=== PATIENT | female | born 1955 | race Caucasian/White ===

== ENCOUNTER → 2018-01-18 10:16 | Outpatient (CLI) | payer SELFPAY ==
--- NOTE | 2018-01-18 10:28 | RAD_ITS ---
STUDY: X-RAY - LEFT SHOULDER REASON FOR EXAM: Female, 62 years old. No recent injury. Pain in the left shoulder. TECHNIQUE: 4 view(s) of the shoulder. COMPARISON: None. FINDINGS: Mild osteopenia. Thoracic structures within the field of view exhibit no acute process. Mild chronic AC joint arthrosis with mild capsular prominence. No apparent separation. Normal glenohumeral articulation. Normal periarticular soft tissues. No shoulder fracture. RAD/Shoulder min 2 Views IMPRESSION: Mild chronic AC joint arthrosis. Electronically Signed: Moe Wagner, at 11:34 EDT Tel , Service support ,
== END ==
DX: M25.512 Pain in left shoulder (principal); M67.912 Unspecified disorder of synovium and tendon, left shoulder
CPT/HCPCS: 73030

== ENCOUNTER → 2018-01-26 14:24 | Outpatient (CLI) | payer SELFPAY | PROVIDERS: Visit Provider Urology | DX: N39.0 Urinary tract infection, site not specified (principal) | CPT/HCPCS: 87077; 87086; 87088; 87186 ==

== ENCOUNTER → 2018-01-28 11:54 | Outpatient (CLI) | payer SELFPAY ==
--- NOTE | 2018-01-28 11:59 | US_ITS ---
STUDY: RENAL ULTRASOUND - COMPLETE REASON FOR EXAM: Female, 62 years old. Frequent UTIs and urinary frequency TECHNIQUE: Ultrasound evaluation of the kidneys was performed with real-time and static bustos-scale imaging. COMPARISON: None. FINDINGS: RIGHT KIDNEY: Normal location of the right kidney, which is normal in size. The right kidney measures 11.1 x 3.9 x 5.6 cm. There is a normal cortex of the right kidney. The renal cortex measures 1.3 cm. There is no right renal mass or cyst. Several right renal calculi are seen measuring up to 8 mm. There is no right hydronephrosis. DISTAL RIGHT URETER: There is non-visualization of the distal right ureter. There is no demonstrated right ureterovesical junction calculus. There is a visualized right ureteral jet. LEFT KIDNEY: Normal location of the left kidney, which is normal in size. The left kidney measures 10.4 x 4.0 x 6.0 cm. There is a normal cortex of the left kidney. The renal cortex measures 1.4 cm. There is a 2.1 x 1.3 x 1.4 cm left renal cyst. There are several left renal calculi measuring up to 9 mm. There is no left hydronephrosis. DISTAL LEFT URETER: There is non-visualization of the distal left ureter. There is no demonstrated left ureterovesical junction calculus. There is a visualized left ureteral jet. BLADDER: The distended urinary bladder has a volume of 98 ml. The empty urinary bladder has a volume of 91 ml. There is a normal wall thickness of the distended urinary bladder. There is no demonstrated mass within the urinary bladder. There are no demonstrated bladder calculi. US/Kidney and Bladder IMPRESSION: Bilateral renal calculi and left renal cyst as detailed above. 91 cc of residual urine seen in the bladder on the postvoiding images. Electronically Signed: Rick Simon MD at 21:46 EDT , Service support ,
== END ==
PROVIDERS: Visit Provider Urology
DX: N39.0 Urinary tract infection, site not specified (principal)
CPT/HCPCS: 76770

== ENCOUNTER → 2018-02-05 07:12 | Outpatient (CLI) | payer SELFPAY ==
--- NOTE | 2018-02-05 07:00 | CT_ITS ---
STUDY: CT ABDOMEN AND PELVIS WITHOUT CONTRAST REASON FOR EXAM: Female, 62 years old. Bilateral kidney stones. Frequent urination. RADIATION DOSAGE (If Supplied By Facility): CTDIvol = ( 8.76 ) mGy, DLP = ( 407.06 ) mGycm TECHNIQUE: Transaxial images were obtained from the dome of the diaphragm to the symphysis pubis without oral contrast, and without intravenous contrast. Sagittal and coronal images were reconstructed. Individualized dose optimization techniques were used for this CT. COMPARISON: Ultrasound kidneys: 01/28/2018 FINDINGS: The visualized lung bases demonstrate no consolidation or pleural effusion. There is possible COPD. The visualized portions of the heart are within normal limits. Normal unenhanced liver. There are multiple gallstones. Normal unenhanced spleen and pancreas. Normal bilateral adrenal glands. Multiple inconspicuous punctate calculi are likely present in the right kidney. There is no right hydronephrosis. There are a few calculi in the left kidney, largest is 4 mm. There are 2.2 cm and 1.5 cm left renal parapelvic cysts. No demonstrated ureteral calculi. Normal visualized stomach. Normal small intestine. Moderately large amount of retained fecal debris is seen in the entire colon. There is non-visualization of the appendix. There is diffuse atherosclerotic calcification of the abdominal aorta and right common iliac artery, without a demonstrated aneurysm. Normal inferior vena cava. Normal retroperitoneum. There is borderline circumferential wall thickening of the urinary bladder demonstrated with possible pericystic edema and with intraluminal significant amount of air in the bladder, findings are suggestive of acute cystitis in the appropriate clinical context. There is atrophy of the uterus. There is a small /moderate size umbilical hernia containing fat. Unremarkable osseous structures. CT/Abdomen/Pelvis without Cont IMPRESSION: 1. Bilateral nephrolithiasis. Left renal parapelvic cysts. 2. Borderline circumferential wall thickening of the urinary bladder. Intraluminal air present in the bladder. There is possible pericystic edema present, findings are suspicious of acute cystitis in the appropriate clinical context. 3. Cholelithiasis. 4. Moderately increased colonic fecal debris. Electronically Signed: Tariq Sharma MD at 9:30 EDT Tel , Service support ,
== END ==
PROVIDERS: Referring Provider Urology; Visit Provider Urology
DX: N20.0 Calculus of kidney (principal)
CPT/HCPCS: 74176

== ENCOUNTER → 2018-02-21 12:34 | Outpatient (CLI) | payer SELFPAY | PROVIDERS: Visit Provider Urology | DX: N39.0 Urinary tract infection, site not specified (principal); R39.15 Urgency of urination | CPT/HCPCS: 87077; 87086; 87088; 87186 ==

== ENCOUNTER 2018-05-04 10:30 | Outpatient (RCR) | payer SELFPAY ==
--- NOTE | 2018-02-15 08:59 | HP.PTEVAL_ITS ---
Patient's Visit Information BARBARA LOPEZ is a 62 year old F referred to Physical Therapy by AWAIS DECKER with a diagnosis of Pain in L shoulder, RC impingement, upper back pain.. Date of Evaluation: 02/15/18 Physical Therapist: Dina Callahan - Visit Plan Frequency: 2x /Week Duration: 4 Weeks Plan: 2X/ week for 4 weeks for L shoulder AAROM, PROM, AROM, scapular and RC strength, postural exercises with HEP. Modalities if needed. - Subjective Subjective: Her L shoulder hurts really bad. thinks it could be RC...she did not do anything to it that she knows of. She can not lay on it. Hard for her to reach for things. It is hard because it is painful. Pt is R handed. She reports that she can not lay on that side. This started about 3 months ago. It is getting worse. No N&T. No neck pain currently but for a year before this she had neck pain then this started in. She feels that her L hand is weak. Her elbow down it does not hurt. Pt is not complaining of upper back pain. Pt gets massages 1X/ month - Pain L shoulder pain Pain Intensity (Out of 10): 1 Pain Intensity Range: 8 Comment: with movement - Objective R handed: Recruitment Director strength: 44 R and 41 L. Shoulder AROM: R shoulder flexion 160 degrees, L shoulder abd 156 degrees, IR T8, 51 degrees. L shoulder AROM: flexion: 104 degrees, abd 80 degrees, IR L5, 8 degrees. L shld MMT: flexion 3-/5, abd 3-/5 ( and painful), ER 3+/5, IR 3+/5. R shld MMT: flexion, abd, ER , and IR 4/5. + HK test for pain, + empty can for pain and weakness - Goals Goal 1:: I HEP Goal Time Frame: 4-6 Weeks Goal 2:: Increase L shoulder AROM to equal the R shoulder (at time of eval: Shoulder AROM: R shoulder flexion 160 degrees, L shoulder abd 156 degrees, IR T8 , 51 degrees. L shoulder AROM: flexion: 104 degrees, abd 80 degrees, IR L5, 8 degrees) Goal Time Frame: 4-6 Weeks Goal 3:: Decrease L shoulder pain to 1/10 with reaching and lifting a gallon of milk Goal Time Frame: 4-6 Weeks - Rehabilitation Potential Rehabilitation Potential: Good - Anticipated Interventions Patient/Client Instruction: Educate patient on: Condition, Plan of Care For the Purpose of:: To decrease pain, To decrease swelling/inflammation, To increase ROM, To improve nutrient delivery to tissue, To improve muscle performance and motor function, To improve ability to perform ADL's, To increase tolerance to activity/condition/position, To improve performance and independence with ADL's, To improve ability of physical actions for home/ community/work/leisure, To improve health of tissue, To decrease soft tissue restriction, To increase flexibility/ROM Therapeutic Exercise to Include: Strength training, Postural training, Flexibilty training, Passive ROM, Active ROM, Scapular Strength/Stabilization For the Purpose of:: To decrease pain, To decrease swelling/inflammation, To increase ROM, To improve nutrient delivery to tissue, To increase oxygenation perfusion, To improve muscle performance and motor function, To improve ability to perform ADL's, To increase tolerance to activity/condition/position, To improve ability of physical actions for home/community/work/leisure, To improve health of tissue, To decrease soft tissue restriction, To increase flexibility/ ROM Manual Therapy Techniques to Include: Passive ROM For the Purpose of:: To increase ROM IF ES: Yes Cryotherapy (ice pack, ice massage): Yes Thermo therapy (hot pack): Yes Ultrasound (thermal/non thermal): Yes For the Purpose of:: To decrease pain, To decrease swelling/inflammation, To increase ROM, To improve nutrient delivery to tissue, To improve muscle performance and motor function Thank you for the opportunity to evaluate your patient. For Medicare and Medicare HMO plans, please review the plan of care and approve it. It will need to be FAXED BACK to us at [phone] for Medicare purposes. Please let me know if there are questions or concerns regarding this plan of care. Physician Signature: Date:
--- NOTE | 2018-07-12 09:07 | HP.PTDCNRP_ITS ---
HP - Discharge Summary (1) - Patient Information BARBARA LOPEZ was seen in my office for initial evaluation on 02/15/18. The following Plan of Care was established for this patient: Initial Frequency: 2x /Week Initial Duration: 4 Weeks - Anticipated Interventions Patient/Client Instruction: Educate patient on: Condition, Plan of Care For the Purpose of:: To decrease pain, To decrease swelling/inflammation, To inc rease ROM, To improve nutrient delivery to tissue, To improve muscle performance and motor function, To improve ability to perform ADL's, To increase tolerance to activity/condition/position, To improve performance and independence with ADL's, To improve ability of physical actions for home/community/work/leisure, To improve health of tissue, To decrease soft tissue restriction, To increase flexibility/ROM Therapeutic Exercise to Include: Strength training, Postural training, Flexibilty training, Passive ROM, Active ROM, Scapular Strength/Stabilization For the Purpose of:: To decrease pain, To decrease swelling/inflammation, To increase ROM, To improve nutrient delivery to tissue, To increase oxygenation perfusion, To improve muscle performance and motor function, To improve ability to perform ADL's, To increase tolerance to activity/condition/position, To improve ability of physical actions for home/community/work/leisure, To improve health of tissue, To decrease soft tissue restriction, To increase flexibility/ROM Manual Therapy Techniques to Include: Passive ROM For the Purpose of:: To increase ROM IF ES: Yes Cryotherapy (ice pack, ice massage): Yes Thermo therapy (hot pack): Yes Ultrasound (thermal/non thermal): Yes For the Purpose of:: To decrease pain, To decrease swelling/inflammation, To increase ROM, To improve nutrient delivery to tissue, To improve muscle performance and motor function This patient was last seen in our office 05/04/18. Pertinent comments regarding their Physical therapy will appear below: [facility] PT. Pt wanted to do exercises at home. At this point I will be discontinuing this patient from physical therapy. I would be happy to see this patient again in the future if found appropriate by the physician. Thank you! Dina Callahan, MPT
== END 2018-05-04 19:00 | disposition home or self-care (01) ==
LOC: PT 10:30
DX: M25.512 Pain in left shoulder (principal); M75.42 Impingement syndrome of left shoulder; M54.9 Dorsalgia, unspecified
CPT/HCPCS: 97014; 97035; 97110; 97161; G0283

== ENCOUNTER → 2018-05-13 07:38 | Outpatient (CLI) | payer SELFPAY ==
--- NOTE | 2018-05-13 07:43 | BI_ITS ---
MAMMOGRAPHY - BILATERAL SCREENING REASON FOR EXAM: Female, 62 years old. Routine annual screening examination. PERTINENT HISTORY: Mother with breast cancer. TECHNIQUE: Digital bilateral breast babs (3D mammographic acquisition) in the CC and MLO projections. 2-D mediolateral oblique (MLO) and craniocaudad (CC) views of both breasts were obtained. CAD: Full Field Digital Mammography with Computer Added Detection was performed. COMPARISON: Comparison is made with prior study dated March 26, 2017 and October 31, 2013. FINDINGS: Breast Composition: The breasts are heterogeneously dense, which may obscure small masses. There are no dominant masses or suspicious calcifications. Stable small bilateral axillary lymph nodes. No other significant abnormalities are identified. There has been no significant change since the prior study. BI/SCREENING MAMM (CAD), BILAT IMPRESSION: Stable bilateral screening mammogram. Yearly follow-up mammogram recommended. (A) ASSESSMENT CATEGORY: BIRADS Category 1: Negative. A letter regarding these results will be sent to the patient by the facility within 30 days. Approximately 10% of breast cancers are not detected by mammography. A normal mammogram should not delay biopsy of a clinically suspicious abnormality. [id number] Electronically Signed: Hunter Benavides MD at 8:58 EST Tel [phone], Service support ,
== END ==
PROVIDERS: Referring Provider Obstetrics & Gynecology; Visit Provider Obstetrics & Gynecology
DX: Z12.31 Encounter for screening mammogram for malignant neoplasm of breast (principal)
CPT/HCPCS: 77063; 77067

== ENCOUNTER → 2018-06-23 10:53 | Outpatient (CLI) | payer SELFPAY | PROVIDERS: Referring Provider Urology; Visit Provider Urology | DX: R30.0 Dysuria (principal) | CPT/HCPCS: 87086; 87088; 87186 ==

== ENCOUNTER 2018-07-22 18:47 | Observation (INO) | payer SELFPAY ==
[2018-07-22] VITALS (8 sets, daily range): BP systolic 127–172; BP diastolic 67–83; PULSE 47–69; RESP 15–20; TEMP 36.4–36.7; O2SAT 96–100; BMI 24.5; BMI 24.0
--- NOTE | 2018-07-22 19:12 | EKG12_ITS ---
Test Reason : CP Blood Pressure : / mmHG Vent. Rate : 055 BPM Atrial Rate : 055 BPM P-R Int : 122 ms QRS Dur : 084 ms QT Int : 414 ms P-R-T Axes : 077 069 068 degrees QTc Int : 396 ms Sinus bradycardia Possible Left atrial enlargement Borderline ECG Confirmed by MADI MORENO, SAMUEL ([id number]), staff editor SUDHIR ELAM ([id number]) on 07/26/2018 3:29:30 PM Referred By: Roman Luis Confirmed By:SAMUEL BARRAZA MD
[2018-07-22] MEDS: Aspirin 81 MG TAB.CHEW 324 MG PO (19:20)
[2018-07-22 19:23] LABS: Absolute Lymphocyte Count 1.73 X10^3/ul (0.83-4.51); Absolute Neutrophil Count 5.1 X10^3/uL (2.0-7.7); Basophil# 0.02 X10^3/uL; Basophil% 0.3 % (0-1); Eosinophil# 0.09 X10^3/uL; Eosinophils% 1.2 % (0-5); Hemoglobin 13.8 g/dl (12.0-15.0); Lymphocyte # 1.73 X10^3/ul (4.0); Lymphocyte % 22.7 % (19-41); Mean Corp Hgb Conc 32.1 g/gl (32-36); Mean Corpuscular Hgb 27.8 pg (27.0-32.0); Mean Corpuscular Volume 86.5 fL (81-99); Mean Platelet Vol. 10.8 fl (6.2-12.0); Monocyte# 0.62 X10^3/uL; Monocyte% 8.1 % (0-10); Neutrophil # 5.12 X10^3/uL (2.7-7.7); Neutrophil % 67.3 % (47-70); Platelet Count 224 K/mm3 (150-450); RBC Distribution Width CV 12.9 % (11.6-14.6); RBC Distribution Width SD 40.6 fl (35.1-43.9); Red Blood Count 4.97 M/mm3 (4.2-5.4); White Blood Count 7.6 K/mm3 (4.4-11.0)
[2018-07-22 19:28] LABS: POSITIVE COUNT NO; POSITIVE DIFFERENTIAL NO; POSITIVE MORPHOLOGY NO
--- NOTE | 2018-07-22 19:30 | RAD_ITS ---
STUDY: X-RAY CHEST REASON FOR EXAM: Female, 63 years old. Chest pain TECHNIQUE: PA and lateral views of the chest. COMPARISON: None. FINDINGS: Cardiac monitoring leads are present. There is hyperinflation of the lungs consistent with chronic obstructive lung disease (COPD). There is no demonstrated pleural abnormality. Normal size heart. Normal mediastinum and jenny. Normal visualized pulmonary arteries. There is atherosclerotic calcification of the aortic arch with tortuosity. There is demineralization of the osseous structures. There is increased thoracic kyphosis and mild multilevel thoracic spondylosis. Normal visualized ribs, clavicles, and shoulders. There is no demonstrated abnormality of the visualized soft tissue structures of the upper abdomen. RAD/Chest PA and Lateral IMPRESSION: COPD without radiographic evidence of acute cardiopulmonary disease. Electronically Signed: Mikayla Kerns MD at 20:30 EST , Service support ,
[2018-07-22 19:38] LABS: D-Dimer Quantitative (DVT/PE) 0.36 FEU/ug/m (0.27-0.49)
[2018-07-22 19:45] LABS: Anion Gap 6 (5-15); BUN 17 mg/dL (7-18); BUN/Creat Ratio 25.2 RATIO (10-20); Calcium,Total 8.5 mg/dL (8.5-10.1); Chloride 107 mmol/L (98-107); Creatinine, Serum 0.67 mg/dL (0.55-1.02); EST Glomerular Filtration Rate 94 mL/min (>60); Est Glom Filt Rate - Afr Amer 114 mL/min (>60); Estimated Creatinine Clearance 75.18 ml/min; Glucose 112 mg/dL (74-106); Lipase 206 U/L (73-393); Potassium 3.7 mmol/L (3.5-5.1); Sodium Level 141 mmol/L (136-145)
[2018-07-22 19:54] LABS: AST(SGOT) 8 U/L (15-37); Alanine Aminotransfer ALT/SGPT 18 U/L (13-56); Albumin, Serum 3.8 g/dL (3.2-5.0); Alkaline Phosphatase 79 U/L (45-117); Bilirubin, Direct 0.14 mg/dL (0.00-0.30); Globulin 3.2 g/dL (2.2-4.2)
--- NOTE | 2018-07-22 20:02 | ED.RN ---
MD AWARE OF HEART RATE DOWN TO 46.
--- NOTE | 2018-07-22 20:28 | ED.DCSUM_ITS ---
- ER Visit Summary Date of Service: 07/22/18 Chief Complaint: Chest pain History of Present Illness: The patient is a 63 F presenting for evaluation secondary chest pain. Patient has an underlying history of hyperlipidemia and a premature family history of cardiac disease. Patient is non-smoker. Patient reports that in the last 2 days she has been dealing with chest pain. She had an episode yesterday that lasted for couple hours and spontaneously resolved. Patient states that today at about 4 PM she had an onset of chest pain that is a heaviness and dullness in her chest. She states was associated with some lightheadedness on walking. No worsening of the pain on walking and no shortness of breath associated with this. Patient denies any prior similar episodes in the past. Patient did undergo shoulder manipulation under anesthesia about a week ago and denies any asymmetric swelling of her legs. Review of systems otherwise negative. Physical Examination: Vital signs are within normal limits, patient is afebrile. General: Patient is well-nourished well-developed and in no acute distress. Head: Normocephalic, atraumatic Eyes: Pupils equal round and reactive bilaterally, extra occular motion intact bialterally ENT: Moist mucous membranes Neck: Supple, no lymphadenopathy, no JVD, no meningismus CVS: Heart regular rate and rhythm, no murmurs, rubs or gallops, radial pulses 2+ bilaterally Resp: Respirations nondistressed, lung sounds clear bilaterally Abdomen: Soft, nontender, nondistended, no palpable masses, normal bowel sounds Back: Nontender Extremities: Nontender, atraumatic, active full range of motion, no peripheral edema Skin: warm, no rashes, no petechia Neuro: Alert and oriented x 4, CN 2-12 intact, no lateralizing neurological defecits Psyc: Normal affect Test Results: EKG demonstrates sinus bradycardia with a rate of 55 normal intervals no evidence of acute ischemia or arrhythmia. CBC chemistry and troponin are negative, chest x-ray is negative. Emergency Department Course and Treatment: Patient presented for evaluation secondary to chest pain. Workup was negative as noted above, patient's heart score is 3. However, while in the emergency department the patient had a couple of episodes where her heart rate would bradycardia down into the 40s and she would have some dramatic lightheadedness, but a normal blood pressure. Given the patient's strong family history, the episodes of bradycardia with symptomatology, I do believe that she requires admission. I will discussed this with hospitalist. Disposition: Admission Impression: 1. Chest pain 2. Intermittent symptomatic bradycardia This note was generated with [employer] dictation software. It may contain incorrect words, spelling, and punctuation that were not noted in review of the chart prior to signing ED Disposition - Plan for ED Patient: Chief Complaint: Chest Pain Referrals: [facility] Doctor,Out of [Primary Care Provider] -
--- NOTE | 2018-07-22 21:14 | PCM.HP.STD ---
Problem List (1) Chronic UTI Status: Chronic (2) Chronic urinary incontinence Status: Chronic (3) Atypical chest pain Status: Acute History of Present Illness Date of Admission: 07/22/18 Chief Complaint: Chest pain 2 times since yesterday. The patient is a 63 year old F with history of chronic UTI on chronic Keflex prophylaxis came to ED with chest pain since 1 day prior to admission. Patient describes the chest pain near the xiphisternum/epigastrium, felt like heartburn lasted for several hours yesterday while she was sitting, localized without radiation. This was not associated with shortness of breath, palpitation but she felt dizzy and lightheaded. This happened again today, similar nature, persistent and she came to ER. Currently, she is chest pain-free. In ED, EKG shows sinus bradycardia at [address]-T changes. No previous EKG to compare with. She has an e xtensive history of coronary artery disease in the family, her father had first ME at the age of 59 and then 18 stents. Her nephew had early ME at 28 years of age and he . She denies history of coronary artery disease, hypertension but has dyslipidemia, not on medication. [] Past Medical History Past Medical History (Chronic Problems): Chronic Problems Chronic UTI (Chronic) Chronic urinary incontinence (Chronic) Allergies Sulfa (Sulfonamide Antibiotics) Allergy (Verified 07/22/18 18:52) Hives Home Medications: Ambulatory Orders Medication Instructions Recorded Cephalexin 250 mg PO DAILY 07/22/18 Cholecalciferol (VIT D3) [Vitamin 1,000 unit PO DAILY 07/22/18 D] Hydrocodone/Acetaminophen 1 - 2 tab PO Q4H PRN PRN 07/22/18 [Hydrocodone-Acetamin 5-325 mg] Oxybutynin Chloride [Ditropan Xl] 10 mg PO DAILY 07/22/18 Smoking Status: Never smoker - *Family History Paternal History Items: Heart Disease Review of Systems Constitutional: Denies: Chills, Fever, Weight Change HEENT: Denies: Head Aches, Sinus Congestion, Sinus Drainage Cardiovascular: Reports: Chest Pain, Light Headedness. Denies: Palpitations Respiratory: Denies: Cough, Shortness of breath at rest, Sputum production Gastrointestinal: Denies: Abdominal Pain, Nausea, Vomiting Genitourinary: Reports: Incontinence. Denies: Dysuria Musculoskeletal: Denies: Joint Pain, Joint Tenderness Skin: Denies: Rash, Wounds Neurological: Denies: Numbness, Tingling, Focal weakness Psychiatric: Denies: Anxiety, Depression, Homicidal Ideations, Suicidal Ideations Hematologic/ Lymphatic: Denies: Easy Bruising, Easy Bleeding VTE Information - Inpt Only VTE Present on Admission: No VTE Mechan Device Prophylaxis: None VTE Pharm Prophylaxis ordered?: Yes Patient Problems: Active and Suspected Problems Atypical chest pain (Acute) - Physical Exam General: Alert, Oriented x3, Cooperative HEENT: Atraumatic, PERRLA, EOMI, Normocephalic Neck: Supple, No JVD, Negative Carotid Bruits Lungs: Clear to auscultation, Normal air movement Cardiovascular: Regular rate, Regular Rhythm, Normal S1, Normal S2, No murmurs Abdomen: Bowel Sounds Present, Soft, Non Tender, Non-Distended Extremities: No edema, Capillary Refill Less than 3 Seconds Skin: No rashes, No breakdown Musculoskeletal: No Tenderness to Palpation of Joints or Extremities, Arthritic Changes Neurological: Cranial nerves II-XII grossly intact, Deep Tendon Reflexes 2+/4 and Symmetrical, Neuro grossly intact, Motor Exam 5/5 strength throughout Psych/Mental Status: Normal Affect, Appropriate Vital Signs Temp Pulse Resp BP Pulse Ox 97.5 F L 47 L 15 148/71 H 100 07/22/18 18:48 07/22/18 20:01 07/22/18 20:01 07/22/18 20:01 07/22/18 20:01 Oxygen Delivery Method Room Air Weight: 142 lb 13.753 oz Body Mass Index (BMI) 24.5 Laboratory Tests Past 24 Hrs 07/22/18 07/22/18 07/22/18 19:05 19:05 19:05 WBC 7.6 RBC 4.97 Hgb 13.8 Hct 43.0 MCV 86.5 MCH 27.8 MCHC 32.1 RDW 12.9 RDW Differential 40.6 Plt Count 224 MPV 10.8 Immature Gran % (Auto) 0.400 Neut % (Auto) 67.3 Lymph % (Auto) 22.7 [place] % (Auto) 8.1 Eos % (Auto) 1.2 Baso % (Auto) 0.3 Absolute Neuts (auto) 5.1 Absolute Lymphs (auto) 1.73 Total Counted Not Reportable D-Dimer Quant (PE/DVT) 0.36 Sodium Potassium Chloride Carbon Dioxide Anion Gap BUN Creatinine Estim Creat Clear Calc Est GFR (MDRD) Af Amer Est GFR (MDRD) Non-Af BUN/Creatinine Ratio Glucose Calcium Total Bilirubin 0.80 Direct Bilirubin 0.14 AST 8 L ALT 18 Alkaline Phosphatase 79 Troponin I Total Protein 7.0 Albumin 3.8 Globulin 3.2 Lipase 07/22/18 19:05 WBC RBC Hgb Hct MCV MCH MCHC RDW RDW Differential Plt Count MPV Immature Gran % (Auto) Neut % (Auto) Lymph % (Auto) [place] % (Auto) Eos % (Auto) Baso % (Auto) Absolute Neuts (auto) Absolute Lymphs (auto) Total Counted D-Dimer Quant (PE/DVT) Sodium 141 Potassium 3.7 Chloride 107 Carbon Dioxide 28.0 Anion Gap 6 BUN 17 Creatinine 0.67 Estim Creat Clear Calc 75.18 Est GFR (MDRD) Af Amer 114 Est GFR (MDRD) Non-Af 94 BUN/Creatinine Ratio 25.2 H Glucose 112 H Calcium 8.5 Total Bilirubin Direct Bilirubin AST ALT Alkaline Phosphatase Troponin I < 0.015 Total Protein Albumin Globulin Lipase 206 Assessment/Plan All Active Problems Atypical chest pain (Acute) The patient is a 63 year old F with history of chronic UTI on chronic Keflex prophylaxis came to ED with chest pain since 1 day prior to admission. Patient describes the chest pain near the xiphisternum/epigastrium, felt like heartburn lasted for several hours yesterday while she was sitting, localized without radiation. This was not associated with shortness of breath, palpitation but she felt dizzy and lightheaded. This happened again today, similar nature, persistent and she came to ER. Currently, she is chest pain-free. In ED, EKG shows sinus bradycardia at [address]-T changes. No previous EKG to compare with. First troponin is negative. She has an extensive history of coronary artery disease in the family, her father had first ME at the age of 59 and then 18 stents. Her nephew had early ME at 28 years of age and he . She denies history of coronary artery disease, hypertension but has dyslipidemia, not on medication. 1. Atypical chest pain, seems GERD but concern of acute coronary syndrome: Patient is being admitted in PCU. ACS protocol with serial troponin enzymes and treadmill nuclear stress for tomorrow morning. She has sinus bradycardia, etiology unclear, not on beta-lynne. EKG does not seem inferior wall ME. No hypotension. Repeat EKG in the floor. IV Protonix 40 mg daily 2. Dyslipidemia: Not on medication. Fasting lipid profile tomorrow. 3. Elevated blood pressure: Patient states her blood pressure in PCP office is in higher 90s. Here 149/67, 172/83. Monitor blood pressure. If elevated can start TANJA inhibitor/ARB. 4. Chronic urinary incontinence with chronic UTI on Keflex: Continue home medications DVT prophylaxis: On Lovenox 40 g subcu daily This note was generated with [employer] dictation software. Every effort was made to ensure accuracy, however computerized sheet sorter mistakes may persist. [] Clinical Impression(s) from Imaging Studies Chest X-Ray 07/22/18 19:30 IMPRESSION: COPD without radiographic evidence of acute cardiopulmonary disease.
--- NOTE | 2018-07-22 21:39 | EKG12_ITS ---
Test Reason : ADMIT Blood Pressure : / mmHG Vent. Rate : 055 BPM Atrial Rate : 055 BPM P-R Int : 118 ms QRS Dur : 090 ms QT Int : 432 ms P-R-T Axes : 064 047 065 degrees QTc Int : 413 ms Sinus bradycardia Nonspecific ST abnormality Abnormal ECG Confirmed by MADI MORENO, SAMUEL ([id number]), content editor SUDHIR ELAM ([id number] on 07/28/2018 8:35:13 AM Referred By: Roman Luis Confirmed By:SAMUEL BARRAZA MD
[2018-07-22] MEDS: Enoxaparin 40 MG/0.4 ML Syringe SC (22:31)
[2018-07-22] MEDS: 0.9% Normal Saline 1,000 ML 100 ML IV (22:31)
[2018-07-23] VITALS (7 sets, daily range): BP systolic 108–121; BP diastolic 54–62; PULSE 54–63; RESP 15–18; TEMP 36.5–36.9; O2SAT 96–98
[2018-07-23] MEDS: Aspirin E.C. 81 MG Tablet PO (06:40)
[2018-07-23 07:17] LABS: Absolute Lymphocyte Count 1.37 X10^3/ul (0.83-4.51); Absolute Neutrophil Count 3.6 X10^3/uL (2.0-7.7); Basophil# 0.01 X10^3/uL; Basophil% 0.2 % (0-1); Eosinophil# 0.06 X10^3/uL; Eosinophils% 1.1 % (0-5); Hematocrit 40.9 % (37-47); Hemoglobin 13.2 g/dl (12.0-15.0); Lymphocyte # 1.37 X10^3/ul (4.0); Lymphocyte % 24.5 % (19-41); Mean Corp Hgb Conc 32.3 g/gl (32-36); Mean Corpuscular Hgb 28.2 pg (27.0-32.0); Mean Corpuscular Volume 87.4 fL (81-99); Mean Platelet Vol. 10.9 fl (6.2-12.0); Monocyte# 0.54 X10^3/uL; Monocyte% 9.6 % (0-10); Neutrophil # 3.61 X10^3/uL (2.7-7.7); Neutrophil % 64.4 % (47-70); Platelet Count 198 K/mm3 (150-450); RBC Distribution Width CV 13.1 % (11.6-14.6); RBC Distribution Width SD 41.6 fl (35.1-43.9); Red Blood Count 4.68 M/mm3 (4.2-5.4); White Blood Count 5.6 K/mm3 (4.4-11.0)
[2018-07-23 07:21] LABS: POSITIVE COUNT NO; POSITIVE DIFFERENTIAL NO; POSITIVE MORPHOLOGY NO
[2018-07-23 07:26] LABS: International Normalized Ratio 1.1; Prothrombin Time (Protime)PT. 13.7 SECONDS (11.7-14.9)
[2018-07-23 07:27] LABS: Partial Thromboplast Time 32.6 Seconds (24.1-36.2)
[2018-07-23 08:05] LABS: Anion Gap 9 (5-15); BUN 14 mg/dL (7-18); BUN/Creat Ratio 24.6 RATIO (10-20); Calcium,Total 8.2 mg/dL (8.5-10.1); Chloride 112 mmol/L (98-107); Cholesterol 209 mg/dL (200); Creatinine, Serum 0.57 mg/dL (0.55-1.02); EST Glomerular Filtration Rate 114 mL/min (>60); Est Glom Filt Rate - Afr Amer 138 mL/min (>60); Estimated Creatinine Clearance 88.37 ml/min; Glucose 89 mg/dL (74-106); High Density Lipoprotein 44 mg/dL; Sodium Level 146 mmol/L (136-145); Thyroid Stim Hormone (TSH) 1.85 uIU/mL (0.358-3.74); Triglycerides 72 mg/dL; Very Low Density Lipoprotein 14 mg/dL (5-40)
--- NOTE | 2018-07-23 11:28 | STRESSREP_ITS ---
Stress Test Report Date: 07/23/2018 Procedure: Pharmacologic stress nuclear imaging study Indications: Chest pain; dizziness; bradycardia Consent: Per the patient Procedure: The patient underwent pharmacologic (Regadenoson) evaluation with a peak heart rate of 112 beats per minute (70% predicted maximal heart rate) and a peak blood pressure of 140/68 mmHg. The baseline ECG demonstrated sinus bradycardia . The peak pharmacologic ECG demonstrated no obvious ECG changes . There were no cardiac dysrhythmias pretest, during pharmacologic infusion, or recovery. There was no complaint of chest discomfort during pharmacologic infusion or recovery. The examination was discontinued secondary to completion of protocol. Impression: 1. Pharmacologic (Regadenoson) evaluation 2. Peak pharmacologic ECG with no obvious ECG changes . 3. There were no cardiac dysrhythmias pretest, during pharmacologic infusion, or recovery. 4. Nuclear images pending Myocardial perfusion imaging study: Technique: The patient was injected with 12.0 millicuries of technetium 99m Cardiolite and subsequently rest SPECT Cardiolite nuclear imaging was obtained in the horizontal long, vertical long, and short axis views. The patient underwent pharmacologic (Regadenoson) evaluation with a peak heart rate of 112 beats per minute (70 % percent predicted maximal heart rate) and a peak blood pressure of 140/68 mmHg. The patient was injected with 35.8 millicuries of technetium 99m Cardiolite and subsequently stress SPECT Cardiolite nuclear imaging was obtained in the horizontal long, vertical long, and short axis views. A gated Cardiolite study at peak stress was obtained. Interpretation: Rest and stress SPECT Cardiolite nuclear imaging status post realignment, normalization, and attenuation correction demonstrate relative uniform tracer uptake and myocardial perfusion appearing within normal limits . There is end systolic thickening and brightening. The gated Cardiolite study demonstrates myocardial thickening and inward wall motion. The reported LVEF is 66 %. Impression: 1. Rest and stress SPECT Cardiolite nuclear imaging demonstrate relative uniform tracer uptake and myocardial perfusion appearing within normal limits. 2. The gated Cardiolite study reports an LVEF of 66 %. This note was generated with [employer] software. It may contain incorrect words, spelling, and punctuation that were not noted in checking the note before signing.
--- NOTE | 2018-07-23 11:44 | PCM.DC ---
- Discharge Diagnoses Current Active Problems: Current Active and Chronic Problems Chronic UTI (Chronic) Chronic urinary incontinence (Chronic) Atypical chest pain (Acute) Reason(s) for Visit for Discharge Instructions: Chest pain You will use the following diet at home:: Cardiac Your food should be the consistency of: Regular Your liquids should be the consistency of: Regular/Thin Discharge Activity: Return to Normal Activity Additional Instructions: Continue to remain active. Take omeprazole twice a day for 2 weeks. Continue on a low fat diet. Follow-up with your primary care doctor within 1-2 weeks. Allergies/Adverse Reactions: Allergies Sulfa (Sulfonamide Antibiotics) Allergy (Verified 07/22/18 18:52) Hives Medications to take at Discharge Cholecalciferol (VIT D3) [Vitamin D3] 1,000 unit PO DAILY 07/22/18 Hydrocodone/Acetaminophen [Hydrocodone-Acetamin 5-325 mg] 1 - 2 tab PO Q4H PRN PRN 07/22/18 Oxybutynin Chloride [Ditropan Xl] 10 mg PO DAILY 07/22/18 Cephalexin [Keflex] 250 mg PO DAILY #30 capsule 07/23/18 Omeprazole 40 mg PO BID #60 capsule. 07/23/18 Pravastatin [Pravachol] 40 mg PO DAILY #30 tablet 07/23/18 The following prescriptions were given: Cephalexin [Keflex] 250 mg PO DAILY #30 capsule Pravastatin [Pravachol] 40 mg PO DAILY #30 tablet Omeprazole 40 mg PO BID #60 capsule. Primary Care Physician: [facility] Doctor,Out of [Primary Care Provider] - Please follow up with your Primary Care Physician in: within 1-2 weeks Test Results: Test results from this visit will be discussed in further detail at your follow-up appointment, if applicable. Proposed Discharge Date: 07/23/18
--- NOTE | 2018-07-23 12:09 | DS.PCM_ITS ---
Discharge Date and Diagnosis Date of Admission: 07/22/18 Date of Discharge: 07/23/18 - Primary Discharge Diagnosis Active and Suspected Problems Atypical chest pain (Acute) - Secondary Discharge Diagnosis Chronic Problems Chronic UTI (Chronic) Chronic urinary incontinence (Chronic) Hospital Course and Treatment Imaging Results: 07/23/18 05:55 Nuclear Stress Test - Treadmil [NM] AM (NON MEDS) Clinical Impression(s) from Imaging Studies Chest X-Ray 07/22/18 19:30 IMPRESSION: COPD without radiographic evidence of acute cardiopulmonary disease. Electronically Signed: Mikayla Kerns MD at 20:30 EST , Service support , None Operations: None Procedures: Stress test Summary of Care Provided: The patient is a 63 year old F past medical history of chronic UTI, on chronic Keflex, GERD comes in with complaints of chest pain, felt midsternal, feels like a heartburn that lasted for several hours. It occurs while she was sitting. Not associated with shortness of breath or palpitation. Passenger with some dizziness. Patient was seen in the ED. EKG showed bradycardia at 55, but no acute ST changes. Patient was admitted to telemetry bed, no acute events overnight. Patient underwent stress test that was negative. Lipid profile showed uncontrolled cholesterol levels. Patient was discharged on omeprazole 40 mg p.o. twice daily as well as starting 40 mg p.o. daily. Patient was advised to follow a low-fat diet, moderate exercises and follow-up with her primary care doctor within 1-2 weeks. Subjective: The day of discharge, patient was seen and examined. Denied any new complaints. Feels well. No acute events on telemetry. - Physical Exam General: Alert, Oriented x3, Cooperative, No apparent distress HEENT: Atraumatic, PERRLA, EOMI, Normocephalic Oral: Moist Mucosa Neck: Supple, No JVD, Negative Carotid Bruits Lungs: Clear to auscultation, Normal air movement Cardiovascular: Regular rate, Regular Rhythm, Normal S1, Normal S2, No murmurs Abdomen: Bowel Sounds Present, Soft, Non Tender, Non-Distended, No Hepato- splenomegaly Extremities: No edema Skin: No rashes, No breakdown Musculoskeletal: No Tenderness to Palpation of Joints or Extremities Lymphatic: No Cervical, Supraclavicular, or Inguinal Adenopathy Neurological: Cranial nerves II-XII grossly intact, Neuro grossly intact Psych/Mental Status: Normal Affect, Appropriate Vital Signs Temp Pulse Resp BP Pulse Ox 97.9 F 57 L 15 113/62 97 07/23/18 07:52 07/23/18 07:52 07/23/18 07:52 07/23/18 07:52 07/23/18 07:52 Oxygen Delivery Method Room Air Weight: 63.5 kg Body Mass Index (BMI) 24.0 Intake and Output for Last 24 Hours 07/21/18 07/22/18 07/23/18 23:59 23:59 23:59 Intake Total 1051 / 1051 Balance 1051 / 1051 Laboratory Tests Past 24 Hrs 07/22/18 07/22/18 07/22/18 19:05 19:05 19:05 WBC 7.6 RBC 4.97 Hgb 13.8 Hct 43.0 MCV 86.5 MCH 27.8 MCHC 32.1 RDW 12.9 RDW Differential 40.6 Plt Count 224 MPV 10.8 Immature Gran % (Auto) 0.400 Neut % (Auto) 67.3 Lymph % (Auto) 22.7 [place] % (Auto) 8.1 Eos % (Auto) 1.2 Baso % (Auto) 0.3 Absolute Neuts (auto) 5.1 Absolute Lymphs (auto) 1.73 Total Counted Not Reportable PT INR APTT D-Dimer Quant (PE/DVT) 0.36 Sodium Potassium Chloride Carbon Dioxide Anion Gap BUN Creatinine Estim Creat Clear Calc Est GFR (MDRD) Af Amer Est GFR (MDRD) Non-Af BUN/Creatinine Ratio Glucose Calcium Total Bilirubin 0.80 Direct Bilirubin 0.14 AST 8 L ALT 18 Alkaline Phosphatase 79 Troponin I Total Protein 7.0 Albumin 3.8 Globulin 3.2 Triglycerides Cholesterol LDL Cholesterol VLDL Cholesterol HDL Cholesterol Lipase TSH 07/22/18 07/22/18 07/23/18 19:05 22:00 01:05 WBC RBC Hgb Hct MCV MCH MCHC RDW RDW Differential Plt Count MPV Immature Gran % (Auto) Neut % (Auto) Lymph % (Auto) [place] % (Auto) Eos % (Auto) Baso % (Auto) Absolute Neuts (auto) Absolute Lymphs (auto) Total Counted PT INR APTT D-Dimer Quant (PE/DVT) Sodium 141 Potassium 3.7 Chloride 107 Carbon Dioxide 28.0 Anion Gap 6 BUN 17 Creatinine 0.67 Estim Creat Clear Calc 75.18 Est GFR (MDRD) Af Amer 114 Est GFR (MDRD) Non-Af 94 BUN/Creatinine Ratio 25.2 H Glucose 112 H Calcium 8.5 Total Bilirubin Direct Bilirubin AST ALT Alkaline Phosphatase Troponin I < 0.015 < 0.015 < 0.015 Total Protein Albumin Globulin Triglycerides Cholesterol LDL Cholesterol VLDL Cholesterol HDL Cholesterol Lipase 206 TSH 07/23/18 07/23/18 07/23/18 06:44 06:44 06:44 WBC 5.6 RBC 4.68 Hgb 13.2 Hct 40.9 MCV 87.4 MCH 28.2 MCHC 32.3 RDW 13.1 RDW Differential 41.6 Plt Count 198 MPV 10.9 Immature Gran % (Auto) 0.200 Neut % (Auto) 64.4 Lymph % (Auto) 24.5 [place] % (Auto) 9.6 Eos % (Auto) 1.1 Baso % (Auto) 0.2 Absolute Neuts (auto) 3.6 Absolute Lymphs (auto) 1.37 Total Counted Not Reportable PT 13.7 INR 1.1 APTT 32.6 D-Dimer Quant (PE/DVT) Sodium 146 H Potassium 4.0 Chloride 112 H Carbon Dioxide 25.0 Anion Gap 9 BUN 14 Creatinine 0.57 Estim Creat Clear Calc 88.37 Est GFR (MDRD) Af Amer 138 Est GFR (MDRD) Non-Af 114 BUN/Creatinine Ratio 24.6 H Glucose 89 Calcium 8.2 L Total Bilirubin Direct Bilirubin AST ALT Alkaline Phosphatase Troponin I Total Protein Albumin Globulin Triglycerides 72 Cholesterol 209 H LDL Cholesterol 151 H VLDL Cholesterol 14 HDL Cholesterol 44 Lipase TSH 1.85 Discharge Diet: No Restrictions Discharge Activity: Return to Normal Activity Home Medications: Medications to take at Discharge Cholecalciferol (VIT D3) [Vitamin D3] 1,000 unit PO DAILY 07/22/18 Hydrocodone/Acetaminophen [Hydrocodone-Acetamin 5-325 mg] 1 - 2 tab PO Q4H PRN PRN 07/22/18 Oxybutynin Chloride [Ditropan Xl] 10 mg PO DAILY 07/22/18 Cephalexin [Keflex] 250 mg PO DAILY #30 capsule 07/23/18 Omeprazole 40 mg PO BID #60 capsule. 07/23/18 Pravastatin [Pravachol] 40 mg PO DAILY #30 tablet 07/23/18 Following Prescrptions Were Given to Patient: Cephalexin [Keflex] 250 mg PO DAILY #30 capsule Pravastatin [Pravachol] 40 mg PO DAILY #30 tablet Omeprazole 40 mg PO BID #60 capsule. Primary Care Physician: [facility] Doctor,Out of [Primary Care Provider] - Please follow up with your Primary Care Physician in: within 1-2 weeks Disposition: Home Medical Necessity - Tobacco Use Smoking Status: Never smoker Tobacco Use: Non-smoker Meaningful Use Info Meaningful Use Diagnoses (Choose all that apply): None applicable Code Visit OBSV E&M: 77497 Observation care discharge
== END 2018-07-23 12:25 | disposition home or self-care (01) ==
LOC: ED 19:38 → PCU 07-23 07:24
PROVIDERS: Admitting Provider Internal Medicine; Emergency Provider Emergency Medicine; Referring Provider Internal Medicine; Visit Provider Internal Medicine
DX: R07.89 Other chest pain (principal); E78.5 Hyperlipidemia, unspecified; R42 Dizziness and giddiness; R00.1 Bradycardia, unspecified; R32 Unspecified urinary incontinence; Z82.49 Family history of ischemic heart disease and other diseases of the circulatory system; Z79.899 Other long term (current) drug therapy; R03.0 Elevated blood-pressure reading, without diagnosis of hypertension; Z87.440 Personal history of urinary (tract) infections; Z79.2 Long term (current) use of antibiotics
CPT/HCPCS: 36415; 71046; 78452; 80048; 80061; 80076; 83690; 84443; 84484; 85025; 85379; 85610; 85730; 93005; 93017; 96360; 96361; 96372; 99218; 99285; A9500; J7030; A4216; G0378; J2785

== ENCOUNTER 2018-08-05 08:00 | Outpatient (RCR) | payer SELFPAY ==
--- NOTE | 2018-07-15 09:03 | HP.PTEVAL_ITS ---
Patient's Visit Information BARBARA LOPEZ is a 63 year old F referred to Physical Therapy by Jason Cardenas MD with a diagnosis of Adhesive capsulitis L shoulder s/p manip. Date of Evaluation: 07/15/18 Physical Therapist: Moy Meade, DPT, OCS, CSCS - Visit Plan Frequency: 2-3x /Week Duration: 4-6 Weeks Plan: 2-3x/week for 4 weeks for AA-AROM and PROm L shoulder and progression to strength, education on management post manip. Ice - Subjective Findings: L shoulder manipulation yesterday after frozen shoulder. Did nerve block and arm is still numb. In a sling since, slept well last night. Not in pain due to numbness, but it will hurt when she wakes. Has vocodin for when she wakes. Had frozen shoulder for a while prior. Had been hurting for a year or more. Was stiff adn painful and PT helped but pain came back. Has had neck apin for long time. No problems in neck to her knowledge. Not giving any exercises at home. Sees doctor next Wednesday. Could not sleep prior. it hurt prior with certain movements prior to manip, neck hurt more than arm though. Mornings were better. Always needed ice before bed and during bed. - Objective Walks well, has sling on and dons and doffs it I. Elbow and scap ROM are full but hesitant. hand and wrist ROM are full, strength not tested in L due to numbness in arm from block. PROM L shoulder 125 flexion, 100 abd, both took time and care to get this high due to muscle spasms and hard time relaxing. EXt rotation to 30 degrees. IR to 80 at 30 degrees flexion. Tender to touch around g-h joint L. L pericervical muscles also tender L >R. reflexes 2/3 bi and tri. Sensation limimted in L UE due to block. Neck ROM full and painfree today. walks I and trasnfers I. - Goals Goal 1:: Full AROM L shoulder without pain Goal Time Frame: 4-6 Weeks Goal 2:: Pt feel 90% back to normal in L shoulder activities Goal Time Frame: 4-6 Weeks Goal 3:: Less than 10% disability on quick DASH Goal Time Frame: 4-6 Weeks Goal 4:: I approp HEP to minimize future problems. Goal Time Frame: 4-6 Weeks - Rehabilitation Potential Physical Therapy Diagnosis: s/p manip L shoulder. Rehabilitation Potential: Fair - Anticipated Interventions Patient/Client Instruction: Educate patient on: Condition, Plan of Care For the Purpose of:: To decrease pain, To increase ROM, To improve performance and independence with ADL's Therapeutic Exercise to Include: Strength training, Passive ROM, Active ROM For the Purpose of:: To decrease pain, To increase ROM, To improve muscle performance and motor function, To improve ability of physical actions for home/community/work/leisure Cryotherapy (ice pack, ice massage): Yes For the Purpose of:: To decrease swelling/inflammation Thank you for the opportunity to evaluate your patient. For Medicare and Medicare HMO plans, please review the plan of care and approve it. It will need to be FAXED BACK to us at [phone] for Medicare purposes. For Medicare only, by signing this I certify the plan of care. Please let me know if there are questions or concerns regarding this plan of care. Physician Signature:__ Date:
--- OUTSIDE RECORDS SUMMARY | 2018-09-18 14:56 | XMS RPT_ITS ---
:1955 Author Organization OHIP Support Name Relationship Address Phone R Unavailable Unavailable Unavailable TERESOANTONIO JAMES Unavailable [address] + [place] [address] R Unavailable Unavailable Unavailable RAMEDUARDOERYADIRAJAMES Unavailable [address] + [place] [address] R Unavailable Unavailable Unavailable RAMSIERYADIRAJAMES Unavailable [address] + [place] [address] R Unavailable Unavailable Unavailable SENGERJAMES Unavailable [address] + [place] [address] R Unavailable Unavailable Unavailable R Unavailable Unavailable Unavailable RAMSIERYADIRAJAMES Unavailable [address] + [place] [address] R Unavailable Unavailable Unavailable RAMEDUARDOERYADIRAJAMES Unavailable [address] + [place] [address] R Unavailable Unavailable Unavailable RAMEDUARDOERYADIRAJAMES Unavailable [address] + [place] [address] R Unavailable Unavailable Unavailable RAMEDUARDOERYADIRAJAMES Unavailable [address] + [place] [address] R Unavailable Unavailable Unavailable RAMSIERYADIRAJAMES Unavailable [address] + [place] [address] R Unavailable Unavailable Unavailable SENGERYADIRAJAMES Unavailable [address] + [place] [address] R Unavailable Unavailable Unavailable RAMEDUARDOERYADIRAJAMES Unavailable [address] + [place] [address] R Unavailable Unavailable Unavailable JAMES LOPEZ Unavailable [address] [facility] + [place] [phone] Care Team Providers Name Role Phone Barbara Ragland Attending Unavailable Barbara Ragland Referring Unavailable ALEXIS PETER Primary Care Unavailable PURNIMAJASON Attending Unavailable PURNIMAJOBJASON Referring Unavailable ALEXIS PETER Primary Care Unavailable DOCTOR, OUT OF TOWN Attending Unavailable ALEXIS PETER Attending Unavailable ALEXIS PETER Referring Unavailable ALEXIS PETER Primary Care Unavailable ALEXIS PETER Primary Care Unavailable Toby, Roman Admitting Unavailable Toby, Roman Referring Unavailable Paintsil, [place] Attending Unavailable Toby, Roman Admitting Unavailable Toby, Roman Attending Unavailable Toby, Roman Referring Unavailable ALEXIS PETER Primary Care Unavailable Toby, Roman Consulting Unavailable Barbara Ragland Attending Unavailable Barbara Ragland Referring Unavailable ALEXIS PETER Primary Care Unavailable Barbara Ragland Attending Unavailable Barbara Ragland Referring Unavailable ALEXIS PETER Primary Care Unavailable Barbara Ragland Attending Unavailable Barbara Ragland Referring Unavailable ALEXIS PETER Primary Care Unavailable ALEXIS PETER Attending Unavailable ALEXIS PETER Primary Care Unavailable ALEXIS PETER Consulting Unavailable ALEXIS PETER Referring Unavailable Barbara Ragland Attending Unavailable Barbara Ragland Referring Unavailable ALEXIS PETER Primary Care Unavailable Eloise Weiner Attending Unavailable Eloise Weiner Referring Unavailable ALEXIS PETER Primary Care Unavailable PROBLEMS PROBLEMS DATE TYPE CONDITION / CODE ATTENDING STATUS SOURCE 06/08/2018 Unknown Z12.31 - Leslee-Chemo, Active [place] Encounter for [facility] mammogram for Repository malignant neoplasm of breast / Z12.31(ICD-10) 07/21/2018 Unknown M25.512 - Pain ALEXIS PETER Active [place] in left shoulder Community / Hospital M25.512(ICD-10) Repository 04/18/2018 Unknown N20.0 - Calculus Barbara Ragland Active [facility] N20.0(ICD-10) Hospital Repository PROCEDURES PROCEDURES No Procedure Records FoundRESULTS RESULTS DISCHARGE INSTRUCTION Observed: 07/23/2018 Status: F Source: [facility] 12[facility] Medical Records Department [address] [address] Instructions for Home/Discharge Instructions 07/23/18 1144 MR#: [id number] Acct: [id number] Name: BARBARA LOPEZ Rep #: [id number] : 1955 63 From: Louisa Bess MD PCP: OUT OF [facility] DOCTOR Status: ADM IN - Discharge Diagnoses Current Active Problems: Current Active and Chronic Problems Chronic UTI (Chronic) Chronic urinary incontinence (Chronic) Atypical chest pain (Acute) Reason(s) for Visit for Discharge Instructions: Chest pain You will use the following diet at home:: Cardiac Your food should be the consistency of: Regular Your liquids should be the consistency of: Regular/Thin Discharge Activity: Return to Normal Activity Additional Instructions: Continue to remain active. Take omeprazole twice a day for 2 weeks. Continue on a low fat diet. Follow-up with your primary care doctor within 1-2 weeks. Allergies/Adverse Reactions: Allergies Sulfa (Sulfonamide Antibiotics) Allergy (Verified 07/22/18 18:52) Hives Medications to take at Discharge Cholecalciferol (VIT D3) [Vitamin D3] 1,000 unit PO DAILY 07/22/18 Hydrocodone/Acetaminophen [Hydrocodone-Acetamin 5-325 mg] 1 - 2 tab PO Q4H PRN PRN 07/22/18 Oxybutynin Chloride [Ditropan Xl] 10 mg PO DAILY 07/22/18 Cephalexin [Keflex] 250 mg PO DAILY #30 capsule 07/23/18 Omeprazole 40 mg PO BID #60 capsule. 07/23/18 Pravastatin [Pravachol] 40 mg PO DAILY #30 tablet 07/23/18 The following prescriptions were given: Cephalexin [Keflex] 250 mg PO DAILY #30 capsule Pravastatin [Pravachol] 40 mg PO DAILY #30 tablet Omeprazole 40 mg PO BID #60 capsule. Primary Care Physician: [facility] Doctor,Out of [Primary Care Provider] - Please follow up with your Primary Care Physician in: within 1-2 weeks Test Results: Test results from this visit will be discussed in further detail at your follow-up appointment, if applicable. Proposed Discharge Date: 07/23/18 07/23/18 1209 <Electronically signed by Louisa Bess MD> Date Louisa Bess MD CC: OUT OF TOWN DOCTOR Signed STRESS REPORT Observed: 07/23/2018 Status: F Source: [place] 11:28 AM [facility] REPOSITORY [facility] Cardiovascular Services [address] [place] [address] MR#: [id number] Acct: [id number] Name: BARBARA LOPEZ Rep #: [id number] : 1955 63 From: Benigno Carbajal MD Primary Care: OUT OF TOWN DOCTOR Status: ADM IN Ordering Dr: Sex: F C Stress Test Report Date: 07/23/2018 Procedure: Pharmacologic stress nuclear imaging study Indications: Chest pain; dizziness; bradycardia Consent: Per the patient Procedure: The patient underwent pharmacologic (Regadenoson) evaluation with a peak heart rate of 112 beats per minute (70% predicted maximal heart rate) and a peak blood pressure of 140/68 mmHg. The baseline ECG demonstrated sinus bradycardia . The peak pharmacologic ECG demonstrated no obvious ECG changes . There were no cardiac dysrhythmias pretest, during pharmacologic infusion, or recovery. There was no complaint of chest discomfort during pharmacologic infusion or recovery. The examination was discontinued secondary to completion of protocol. Impression: 1. Pharmacologic (Regadenoson) evaluation 2. Peak pharmacologic ECG with no obvious ECG changes . 3. There were no cardiac dysrhythmias pretest, during pharmacologic infusion, or recovery. 4. Nuclear images pending Myocardial perfusion imaging study: Technique: The patient was injected with 12.0 millicuries of technetium 99m Cardiolite and subsequently rest SPECT Cardiolite nuclear imaging was obtained in the horizontal long, vertical long, and short axis views. The patient underwent pharmacologic (Regadenoson) evaluation with a peak heart rate of 112 beats per minute (70 % percent predicted maximal heart rate) and a peak blood pressure of 140/68 mmHg. The patient was injected with 35.8 millicuries of technetium 99m Cardiolite and subsequently stress SPECT Cardiolite nuclear imaging was obtained in the horizontal long, vertical long, and short axis views. A gated Cardiolite study at peak stress was obtained. Interpretation: Rest and stress SPECT Cardiolite nuclear imaging status post realignment, normalization, and attenuation correction demonstrate relative uniform tracer uptake and myocardial perfusion appearing within normal limits . There is end systolic thickening and brightening. The gated Cardiolite study demonstrates myocardial thickening and inward wall motion. The reported LVEF is 66 %. Impression: 1. Rest and stress SPECT Cardiolite nuclear imaging demonstrate relative uniform tracer uptake and myocardial perfusion appearing within normal limits. 2. The gated Cardiolite study reports an LVEF of 66 %. This note was generated with [employer] software. It may contain incorrect words, spelling, and punctuation that were not noted in checking the note before signing. 07/23/18 1128 <Electronically signed by Benigno Carbajal MD> Date Benigno Carbajal MD CC: Louisa Bess MD; OUT OF TOWN DOCTOR; Roman Luis MD Date Dictated: 07/23/181124 Date Transcribed: 07/23/181124 [facility] Director: PM Signed CBC W/DIFF, AUTOMATED Collected: 07/23/2018 Status: F Source: [place] 6:44 AM [facility] REPOSITORY TYPE CODE TESTS RESULT OUT OF RANGE REFERENCE UNITS LAB L100.1000 4.4-11.0 K/mm3 Normal WBC 5.6 LAB L100.1200 4.2-5.4 M/mm3 Normal RBC 4.68 LAB L100.1300 12.0-15.0 g/dl Normal HGB 13.2 LAB L100.1400 37-47 % Normal HCT 40.9 LAB L100.1500 81-99 fL Normal MCV 87.4 LAB L100.1600 27.0-32.0 pg Normal MCH 28.2 LAB L100.1700 32-36 g/gl Normal MCHC 32.3 LAB L100.1810 11.6-14.6 % Normal RDW CV 13.1 LAB L100.1820 35.1-43.9 fl Normal RDW SD 41.6 LAB L100.1900 150-450 K/mm3 Normal PLT 198 LAB L100.2000 6.2-12.0 fl Normal MPV 10.9 LAB L100.2100 47-70 % Normal NEUT% 64.4 LAB L100.2200 19-41 % Normal LY% 24.5 LAB L100.2300 0-10 % Normal MONO% 9.6 LAB L100.2400 0-5 % Normal EO% 1.1 LAB L100.2500 0-1 % Normal BASO% 0.2 LAB L100.2550 0.0-0.9 % Normal IM GRAN % 0.200 Result Comment: IG% - Immature Granulocytes (promyelocytes, myelocytes and metamyelocytes) > 1% indicates that a LEFT SHIFT is Present. LAB L100.2620 2.0-7.7 X10 3/uL Normal Absolute Neut 3.6 LAB L100.2720 0.83-4.51 X10 3/ul Normal Absolute Lymph 1.37 Performed By: #### L100.0100 #### [facility] [address] [place], [address] PROTHROMBIN TIME W/INR Collected: 07/23/2018 Status: F Source: [place] 6:44 AM [facility] REPOSITORY TYPE CODE TESTS RESULT OUT OF RANGE REFERENCE UNITS LAB L300.4150 11.7-14.9 SECONDS Normal PROTIME 13.7 LAB L300.4200 Normal INR 1.1 Performed By: #### L300.3900, L300.4310 #### [facility] [address] [place], [address] PARTIAL THROMBOPLAST Collected: 07/23/2018 Status: F Source: [place] TIME 6:44 AM [facility] REPOSITORY TYPE CODE TESTS RESULT OUT OF RANGE REFERENCE UNITS LAB L300.4310 24.1-36.2 Seconds Normal PTT 32.6 Performed By: #### L300.3900, L300.4310 #### [facility] [address] [place], [address] BASIC METABOLIC Collected: 07/23/2018 Status: F Source: [place] PROFILE (BMP) 6:44 AM [facility] REPOSITORY TYPE CODE TESTS RESULT OUT OF RANGE REFERENCE UNITS LAB L501.0100 74-106 mg/dL Normal GLU 89 Result Comment: Please note revised GLUCOSE reference range effective 2017. LAB L501.1000 7-18 mg/dL Normal BUN 14 LAB L501.1100 0.55-1.02 mg/dL Normal CREAT,SERUM 0.57 Result Comment: The validity of the calculated GFR AND GFRAA in patients over 70 years has not been determined. Clinical correlation is essential. LAB L501.1110 >60 mL/min Normal EST GFR 114 Result Comment: Non- GFR Calc LAB L501.1115 >60 mL/min Normal EST GFR - AA 138 Result Comment: GFR Calc LAB L501.1255 ml/min Normal Estimated CRCL 88.37 LAB L501.1300 10-20 RATIO High BUN/CRE 24.6 LAB L501.2200 8.5-10 mg/dL Low .1 CA 8.2 LAB L501.5300 136-14 mmol/L High 5 NA 146 LAB L501.5600 3.5-5. mmol/L Normal 1 K 4.0 LAB L501.5900 98-107 mmol/L High CL 112 LAB L501.6100 21.0-3 mmol/L Normal 2.0 CO2 25.0 LAB L501.6200 5-15 Normal GAP 9 Performed By: #### L500.2500, L500.4100, L501.9520 #### [facility] [address] [place], [address] LIPID PROFILE Collected: 07/23/2018 Status: F Source: [place] 6:44 AM [facility] REPOSITORY TYPE CODE TESTS RESULT OUT OF RANGE REFERENCE UNITS LAB L501.4900 200 mg/dL High CHOL 209 Result Comment: <200 mg/dL Desirable 200-240 mg/dL Borderline >240 mg/dL High Risk LAB L501.5000 mg/dL Normal TRIG 72 Result Comment: The drugs N-Acetylcysteine and Metamizole may falsely depress this assay. Serum Triglycerides Reference Interval Normal <150 mg/dL Borderline high 150 - 199 mg/dL High 200 - 499 mg/dL Very High > or = 500 mg/dL LAB L501.6400 mg/dL Normal HDL 44 Result Comment: The drugs N-Acetylcysteine and Metamizole may falsely depress this assay. Reference Range HDL <40 mg/dL Low HDL Cholesterol HDL >or= 60 mg/dL High HDL Cholesterol LAB L501.6500 0-130 mg/dL High LDL 151 LAB L501.6600 5-40 mg/dL Normal VLDL 14 Performed By: #### L500.2500, L500.4100, L501.9520 #### [facility] [address] [place], [address] THYROID STIM HORMONE Collected: 07/23/2018 Status: F Source: [place] (TSH) 6:44 AM [facility] REPOSITORY TYPE CODE TESTS RESULT OUT OF RANGE REFERENCE UNITS LAB L501.9520 0.358-3.74 uIU/mL Normal TSH 1.85 Performed By: #### L500.2500, L500.4100, L501.9520 #### [facility] [address] [place], [address] TROPONIN-I Collected: 07/23/2018 Status: F Source: [place] 1:05 AM [facility] REPOSITORY Order Comment: 'TROP' Serial specimen #1, #2 or #3: 3 TYPE CODE TESTS RESULT OUT OF RANGE REFERENCE UNITS LAB L501.4010 <0.045 ng/mL Normal < 0.015 TROPONIN-I Result Comment: TROPONIN-I EXPECTED VALUES <0.045 Negative 0.045 - 0.590 Consistent with Cardiac Damage > OR = 0.600 Critical Value Not every elevated troponin is indicative of AR. These values should be used with clinical judgement in examining the patient's clinical picture for diagnosis. To establish a diagnosis of AR versus myocardial injury, there must be a demonstrated rise and/or fall in the troponin values, in addition to ischemic symptoms, EKG changes, new regional wall motion abnormality, and/or angiographical evidence. PLEASE NOTE: REFERENCE RANGES EDITED 17 Performed By: #### L501.4010 #### [facility] [address] [place], [address] EMERGENCY DEPARTMENT Observed: 07/22/2018 Status: F Source: [place] SUMMARY 11:19 PM [facility] REPOSITORY [facility] Medical Records Department [address] [place] [address] Emergency Department Summary 07/22/182023 MR#: [id number] Acct: [id number] Name: BARBARA LOPEZ Rep #: [id number] : 1955 63 From: Abdirahman Muñoz MD PCP: OUT OF TOWN DOCTOR Status: ADM IN - ER Visit Summary Date of Service: 07/22/18 Chief Complaint: Chest pain History of Present Illness: The patient is a 63 F presenting for evaluation secondary chest pain. Patient has an underlying history of hyperlipidemia and a premature family history of cardiac disease. Patient is non-smoker. Patient reports that in the last 2 days she has been dealing with chest pain. She had an episode yesterday that lasted for couple hours and spontaneously resolved. Patient states that today at about 4 PM she had an onset of chest pain that is a heaviness and dullness in her chest. She states was associated with some lightheadedness on walking. No worsening of the pain on walking and no shortness of breath associated with this. Patient denies any prior similar episodes in the past. Patient did undergo shoulder manipulation under anesthesia about a week ago and denies any asymmetric swelling of her legs. Review of systems otherwise negative. Physical Examination: Vital signs are within normal limits, patient is afebrile. General: Patient is well-nourished well-developed and in no acute distress. Head: Normocephalic, atraumatic Eyes: Pupils equal round and reactive bilaterally, extra occular motion intact bialterally ENT: Moist mucous membranes Neck: Supple, no lymphadenopathy, no JVD, no meningismus CVS: Heart regular rate and rhythm, no murmurs, rubs or gallops, radial pulses 2+ bilaterally Resp: Respirations nondistressed, lung sounds clear bilaterally Abdomen: Soft, nontender, nondistended, no palpable masses, normal bowel sounds Back: Nontender Extremities: Nontender, atraumatic, active full range of motion, no peripheral edema Skin: warm, no rashes, no petechia Neuro: Alert and oriented x 4, CN 2-12 intact, no lateralizing neurological defecits Psyc: Normal affect Test Results: EKG demonstrates sinus bradycardia with a rate of 55 normal intervals no evidence of acute ischemia or arrhythmia. CBC chemistry and troponin are negative, chest x-ray is negative. Emergency Department Course and Treatment: Patient presented for evaluation secondary to chest pain. Workup was negative as noted above, patient's heart score is 3. However, while in the emergency department the patient had a couple of episodes where her heart rate would bradycardia down into the 40s and she would have some dramatic lightheadedness, but a normal blood pressure. Given the patient's strong family history, the episodes of bradycardia with symptomatology, I do believe that she requires admission. I will discussed this with hospitalist. Disposition: Admission Impression: 1. Chest pain 2. Intermittent symptomatic bradycardia This note was generated with [employer] dictation software. It may contain incorrect words, spelling, and punctuation that were not noted in review of the chart prior to signing ED Disposition - Plan for ED Patient: Chief Complaint: Chest Pain Referrals: [facility] Doctor,Out of [Primary Care Provider] - What to do if you have Problems For any increased pain, shortness of breath, bleeding, nausea or vomiting, chest pain, or any unexpected problems, contact your Primary Care Provider. Call [facility] ([phone]) or report to the closest Emergency Room. Call 911 if necessary. 07/22/18 3559 <Electronically signed by Abdirahman Muñoz MD> Date Abdirahman Muñoz MD Cosigner Signature (If Indicated): Date CC: OUT OF TOWN DOCTOR HISTORY AND PHYSICAL Observed: 07/22/2018 Status: F Source: [place] EXAM 9:26 PM [facility] REPOSITORY [facility] Medical Records Department [address] [place] [address] History and Physical 07/22/182113 MR#: [id number] Acct: [id number] Name: ALONDRA LOPEZRIC Calderon Rep #: [id number] : 1955 63 From: Roman Luis MD PCP: OUT OF TOWN DOCTOR Status: ADM IN Y Location: [place] [address] Problem List (1) Chronic UTI Status: Chronic (2) Chronic urinary incontinence Status: Chronic (3) Atypical chest pain Status: Acute History of Present Illness Date of Admission: 07/22/18 Chief Complaint: Chest pain 2 times since yesterday. The patient is a 63 year old F with history of chronic UTI on chronic Keflex prophylaxis came to ED with chest pain since 1 day prior to admission. Patient describes the chest pain near the xiphisternum/epigastrium, felt like heartburn lasted for several hours yesterday while she was sitting, localized without radiation. This was not associated with shortness of breath, palpitation but she felt dizzy and lightheaded. This happened again today, similar nature, persistent and she came to ER. Currently, she is chest pain-free. In ED, EKG shows sinus bradycardia at [address]-T changes. No previous EKG to compare with. She has an e xtensive history of coronary artery disease in the family, her father had first AR at the age of 59 and then 18 stents. Her nephew had early AR at 28 years of age and he . She denies history of coronary artery disease, hypertension but has dyslipidemia, not on medication. [] Past Medical History Past Medical History (Chronic Problems): Chronic Problems Chronic UTI (Chronic) Chronic urinary incontinence (Chronic) Allergies Sulfa (Sulfonamide Antibiotics) Allergy (Verified 07/22/18 18:52) Hives Home Medications: Ambulatory Orders Medication Instructions Recorded Cephalexin 250 mg PO DAILY 07/22/18 Cholecalciferol (VIT D3) [Vitamin 1,000 unit PO DAILY 07/22/18 Smoking Status: Never smoker - *Family History Paternal History Items: Heart Disease Review of Systems Constitutional: Denies: Chills, Fever, Weight Change HEENT: Denies: Head Aches, Sinus Congestion, Sinus Drainage Cardiovascular: Reports: Chest Pain, Light Headedness. Denies: Palpitations Respiratory: Denies: Cough, Shortness of breath at rest, Sputum production Gastrointestinal: Denies: Abdominal Pain, Nausea, Vomiting Genitourinary: Reports: Incontinence. Denies: Dysuria Musculoskeletal: Denies: Joint Pain, Joint Tenderness Skin: Denies: Rash, Wounds Neurological: Denies: Numbness, Tingling, Focal weakness Psychiatric: Denies: Anxiety, Depression, Homicidal Ideations, Suicidal Ideations Hematologic/ Lymphatic: Denies: Easy Bruising, Easy Bleeding VTE Information - Inpt Only VTE Present on Admission: No VTE Mechan Device Prophylaxis: None VTE Pharm Prophylaxis ordered?: Yes Patient Problems: Active and Suspected Problems Atypical chest pain (Acute) - Physical Exam General: Alert, Oriented x3, Cooperative HEENT: Atraumatic, PERRLA, EOMI, Normocephalic Neck: Supple, No JVD, Negative Carotid Bruits Lungs: Clear to auscultation, Normal air movement Cardiovascular: Regular rate, Regular Rhythm, Normal S1, Normal S2, No murmurs Abdomen: Bowel Sounds Present, Soft, Non Tender, Non-Distended Extremities: No edema, Capillary Refill Less than 3 Seconds Skin: No rashes, No breakdown Musculoskeletal: No Tenderness to Palpation of Joints or Extremities, Arthritic Changes Neurological: Cranial nerves II-XII grossly intact, Deep Tendon Reflexes 2+/4 and Symmetrical, Neuro grossly intact, Motor Exam 5/5 strength throughout Psych/Mental Status: Normal Affect, Appropriate Vital Signs Temp Pulse Resp BP Pulse Ox 97.5 F L 47 L 15 148/71 H 100 07/22/18 18:48 07/22/18 20:01 07/22/18 20:01 07/22/18 20:01 07/22/18 20:01 Oxygen Delivery Method Room Air Weight: 142 lb 13.753 oz Body Mass Index (BMI) 24.5 Laboratory Tests Past 24 Hrs WBC 7.6 RBC 4.97 Hgb 13.8 Hct 43.0 MCV 86.5 MCH 27.8 WBC RBC Hgb Hct MCV MCH MCHC RDW RDW Differential Plt Count MPV Immature Gran % (Auto) Assessment/Plan All Active Problems Atypical chest pain (Acute) The patient is a 63 year old F with history of chronic UTI on chronic Keflex prophylaxis came to ED with chest pain since 1 day prior to admission. Patient describes the chest pain near the xiphisternum/epigastrium, felt like heartburn lasted for several hours yesterday while she was sitting, localized without radiation. This was not associated with shortness of breath, palpitation but she felt dizzy and lightheaded. This happened again today, similar nature, persistent and she came to ER. Currently, she is chest pain-free. In ED, EKG shows sinus bradycardia at [address]-T changes. No previous EKG to compare with. First troponin is negative. She has an extensive history of coronary artery disease in the family, her father had first AR at the age of 59 and then 18 stents. Her nephew had early AR at 28 years of age and he . She denies history of coronary artery disease, hypertension but has dyslipidemia, not on medication. 1. Atypical chest pain, seems GERD but concern of acute coronary syndrome: Patient is being admitted in PCU. ACS protocol with serial troponin enzymes and treadmill nuclear stress for tomorrow morning. She has sinus bradycardia, etiology unclear, not on beta-lynne. EKG does not seem inferior wall AR. No hypotension. Repeat EKG in the floor. IV Protonix 40 mg daily 2. Dyslipidemia: Not on medication. Fasting lipid profile tomorrow. 3. Elevated blood pressure: Patient states her blood pressure in PCP office is in higher 90s. Here 149/67, 172/83. Monitor blood pressure. If elevated can start TANJA inhibitor/ARB. 4. Chronic urinary incontinence with chronic UTI on Keflex: Continue home medications DVT prophylaxis: On Lovenox 40 g subcu daily This note was generated with [employer] dictation software. Every effort was made to ensure accuracy, however computerized ship self defense system mk1 operator mistakes may persist. [] Clinical Impression(s) from Imaging Studies Chest X-Ray 07/22/18 19:30 IMPRESSION: COPD without radiographic evidence of acute cardiopulmonary disease. 07/22/182125 <Electronically signed by Roman Luis MD> Date Roman Luis MD Cosigner Signature: Date (if applicable) CC: OUT OF TOWN DOCTOR; Roman Luis MD Signed CHEST PA AND LATERAL Observed: 07/22/2018 Status: F Source: [place] 7:13 PM [facility] REPOSITORY [facility] Imaging Services [facility] [address] [place] [address] Chest PA and Lateral MR#: [id number] Acct: [id number] Name: BARBARA LOPEZ Rep #: [id number] : 1955 F 63 From: Mikayla Kerns MD PCP: OUT OF TOWN DOCTOR Status: REG ER Study: Chest PA and Lateral Date of Exam: 07/22/18 Exam# [id number] Ordering Dr: Abdirahman Muñoz MD STUDY: X-RAY CHEST REASON FOR EXAM: Female, 63 years old. Chest pain TECHNIQUE: PA and lateral views of the chest. COMPARISON: None. FINDINGS: Cardiac monitoring leads are present. There is hyperinflation of the lungs consistent with chronic obstructive lung disease (COPD). There is no demonstrated pleural abnormality. Normal size heart. Normal mediastinum and jenny. Normal visualized pulmonary arteries. There is atherosclerotic calcification of the aortic arch with tortuosity. There is demineralization of the osseous structures. There is increased thoracic kyphosis and mild multilevel thoracic spondylosis. Normal visualized ribs, clavicles, and shoulders. There is no demonstrated abnormality of the visualized soft tissue structures of the upper abdomen. RAD/Chest PA and Lateral IMPRESSION: COPD without radiographic evidence of acute cardiopulmonary disease. Electronically Signed: Mikayla Kerns MD at 20:30 EST , Service support , CC: Abdirahman Muñoz; OUT OF TOWN DOCTOR [employer] Director: Signed CBC W/DIFF, AUTOMATED Collected: 07/22/2018 Status: F Source: [place] 7:05 PM [facility] REPOSITORY TYPE CODE TESTS RESULT OUT OF RANGE REFERENCE UNITS LAB L100.1000 4.4-11.0 K/mm3 Normal WBC 7.6 LAB L100.1200 4.2-5.4 M/mm3 Normal RBC 4.97 LAB L100.1300 12.0-15.0 g/dl Normal HGB 13.8 LAB L100.1400 37-47 % Normal HCT 43.0 LAB L100.1500 81-99 fL Normal MCV 86.5 LAB L100.1600 27.0-32.0 pg Normal MCH 27.8 LAB L100.1700 32-36 g/gl Normal MCHC 32.1 LAB L100.1810 11.6-14.6 % Normal RDW CV 12.9 LAB L100.1820 35.1-43.9 fl Normal RDW SD 40.6 LAB L100.1900 150-450 K/mm3 Normal PLT 224 LAB L100.2000 6.2-12.0 fl Normal MPV 10.8 LAB L100.2100 47-70 % Normal NEUT% 67.3 LAB L100.2200 19-41 % Normal LY% 22.7 LAB L100.2300 0-10 % Normal MONO% 8.1 LAB L100.2400 0-5 % Normal EO% 1.2 LAB L100.2500 0-1 % Normal BASO% 0.3 LAB L100.2550 0.0-0.9 % Normal IM GRAN % 0.400 Result Comment: IG% - Immature Granulocytes (promyelocytes, myelocytes and metamyelocytes) > 1% indicates that a LEFT SHIFT is Present. LAB L100.2620 2.0-7.7 X10 3/uL Normal Absolute Neut 5.1 LAB L100.2720 0.83-4.51 X10 3/ul Normal Absolute Lymph 1.73 Performed By: #### L100.0100 #### [facility] [address] [place], [address] D-DIMER QUANTITATIVE Collected: 07/22/2018 Status: F Source: [place] (DVT/PE) 7:05 PM [facility] REPOSITORY TYPE CODE TESTS RESULT OUT OF RANGE REFERENCE UNITS LAB L300.8000 0.27-0.49 FEU/ug/m Normal D-DIMER 0.36 QUANT Result Comment: NORMAL D-Dimer level (<0.50) indicates no DVT or PE. Performed By: #### L300.8000 #### [facility] [address] [place], [place], [id number] BASIC METABOLIC Collected: 07/22/2018 Status: F Source: [place] PROFILE (BMP) 7:05 PM [facility] REPOSITORY TYPE CODE TESTS RESULT OUT OF RANGE REFERENCE UNITS LAB L501.0100 74-106 mg/dL High GLU 112 Result Comment: Fasting Glucose result from 100 to 125 mg/dL suggests IMPAIRED HOMEOSTASIS per A.D.A. criteria. Please note revised GLUCOSE reference range effective 2017. LAB L501.1000 7-18 mg/dL Normal BUN 17 LAB L501.1100 0.55-1.02 mg/dL Normal CREAT,SERUM 0.67 Result Comment: The validity of the calculated GFR AND GFRAA in patients over 70 years has not been determined. Clinical correlation is essential. LAB L501.1110 >60 mL/min Normal EST GFR 94 Result Comment: Non- GFR Calc LAB L501.1115 >60 mL/min Normal EST GFR - AA 114 Result Comment: GFR Calc LAB L501.1255 ml/min Normal Estimated CRCL 75.18 LAB L501.1300 10-20 RATIO High BUN/CRE 25.2 LAB L501.2200 8.5-10 mg/dL Normal .1 CA 8.5 LAB L501.5300 136-14 mmol/L Normal 5 NA 141 LAB L501.5600 3.5-5. mmol/L Normal 1 K 3.7 LAB L501.5900 98-107 mmol/L Normal CL 107 LAB L501.6100 21.0-3 mmol/L Normal 2.0 CO2 28.0 LAB L501.6200 5-15 Normal GAP 6 Performed By: #### L500.2500, L501.2450, L501.4010 #### [facility] [address] [facility]. [place], [place], [id number] LIPASE Collected: 07/22/2018 Status: F Source: [place] 7:05 [facility] REPOSITORY TYPE CODE TESTS RESULT OUT OF RANGE REFERENCE UNITS LAB L501.2450 73-393 U/L Normal LIPASE 206 Performed By: #### L500.2500, L501.2450, L501.4010 #### [facility] [address] [place], [place], [address] TROPONIN-I Collected: 07/22/2018 Status: F Source: [place] 7:05 PM [facility] REPOSITORY TYPE CODE TESTS RESULT OUT OF RANGE REFERENCE UNITS LAB L501.4010 <0.045 ng/mL Normal < 0.015 TROPONIN-I Result Comment: TROPONIN-I EXPECTED VALUES <0.045 Negative 0.045 - 0.590 Consistent with Cardiac Damage > OR = 0.600 Critical Value Not every elevated troponin is indicative of AR. These values should be used with clinical judgement in examining the patient's clinical picture for diagnosis. To establish a diagnosis of AR versus myocardial injury, there must be a demonstrated rise and/or fall in the troponin values, in addition to ischemic symptoms, EKG changes, new regional wall motion abnormality, and/or angiographical evidence. PLEASE NOTE: REFERENCE RANGES EDITED 17 Performed By: #### L500.2500, L501.2450, L501.4010 #### [facility] [address] [place], [address] LIVER PROFILE Collected: 07/22/2018 Status: F Source: [place] 7:05 PM [facility] REPOSITORY TYPE CODE TESTS RESULT OUT OF RANGE REFERENCE UNITS LAB L501.1500 6.4-8.2 g/dL Normal T PROT 7.0 LAB L501.1800 3.2-5.0 g/dL Normal ALB 3.8 LAB L501.1950 2.2-4.2 g/dL Normal GLOB 3.2 LAB L501.4100 15-37 U/L Low AST 8 LAB L501.4305 45-117 U/L Normal ALK P 79 LAB L501.4405 13-56 U/L Normal ALT 18 LAB L501.4600 0.20-1.00 mg/dL Normal T BILI 0.80 LAB L501.4700 0.00-0.30 mg/dL Normal D BILI 0.14 Performed By: #### L500.3400 #### [facility] [address] [place], [place], [address] INITAL EVALUATION (1) Observed: 07/18/2018 Status: F Source: [place] - PT 6:47 AM [facility] REPOSITORY [facility] Physical Therapy [facility] [place] [address] / REHABILITATION SERVICES INITIAL EVALUATION MR#: [id number] Acct: [id number] Name: ALONDRA LOPEZRIC Calderon Rep #: [id number] : 1955 63 From: Moy Meade DPT, OCS, CSCS Referring DrOfelia: JASON FELTON Status: REG RCR Insurance: [facility] PACKAGE PLAN SELF PAY INSURANCE Patient's Visit Information BARBARA LOPEZ is a 63 year old F referred to Physical Therapy by Jason Felton MD with a diagnosis of Adhesive capsulitis L shoulder s/p manip. Date of Evaluation: 07/15/18 Physical Therapist: Moy Meade, DPT, OCS, CSCS - Visit Plan Frequency: 2-3x /Week Duration: 4-6 Weeks Plan: 2-3x/week for 4 weeks for AA-AROM and PROm L shoulder and progression to strength, education on management post manip. Ice - Subjective Findings: L shoulder manipulation yesterday after frozen shoulder. Did nerve block and arm is still numb. In a sling since, slept well last night. Not in pain due to numbness, but it will hurt when she wakes. Has vocodin for when she wakes. Had frozen shoulder for a while prior. Had been hurting for a year or more. Was stiff adn painful and PT helped but pain came back. Has had neck apin for long time. No problems in neck to her knowledge. Not giving any exercises at home. Sees doctor next Wednesday. Could not sleep prior. it hurt prior with certain movements prior to manip, neck hurt more than arm though. Mornings were better. Always needed ice before bed and during bed. - Objective Walks well, has sling on and dons and doffs it I. Elbow and scap ROM are full but hesitant. hand and wrist ROM are full, strength not tested in L due to numbness in arm from block. PROM L shoulder 125 flexion, 100 abd, both took time and care to get this high due to muscle spasms and hard time relaxing. EXt rotation to 30 degrees. IR to 80 at 30 degrees flexion. Tender to touch around g-h joint L. L pericervical muscles also tender L >R. reflexes 2/3 bi and tri. Sensation limimted in L UE due to block. Neck ROM full and painfree today. walks I and trasnfers I. - Goals Goal 1:: Full AROM L shoulder without pain Goal Time Frame: 4-6 Weeks Goal 2:: Pt feel 90% back to normal in L shoulder activities Goal Time Frame: 4-6 Weeks Goal 3:: Less than 10% disability on quick DASH Goal Time Frame: 4-6 Weeks Goal 4:: I approp HEP to minimize future problems. Goal Time Frame: 4-6 Weeks - Rehabilitation Potential Physical Therapy Diagnosis: s/p manip L shoulder. Rehabilitation Potential: Fair - Anticipated Interventions Patient/Client Instruction: Educate patient on: Condition, Plan of Care For the Purpose of:: To decrease pain, To increase ROM, To improve performance and independence with ADL's Therapeutic Exercise to Include: Strength training, Passive ROM, Active ROM For the Purpose of:: To decrease pain, To increase ROM, To improve muscle performance and motor function, To improve ability of physical actions for home/community/work/leisure Cryotherapy (ice pack, ice massage): Yes For the Purpose of:: To decrease swelling/inflammation Thank you for the opportunity to evaluate your patient. For Medicare and Medicare HMO plans, please review the plan of care and approve it. It will need to be FAXED BACK to us at [phone] for Medicare purposes. For Medicare only, by signing this I certify the plan of care. Please let me know if there are questions or concerns regarding this plan of care. Physician Signature: Date: <Electronically signed by Moy Meade DPT, OCS, CSCS> 07/18/18 0647 CC: JASON FELTON; OUT OF TOWN DOCTOR EBLeah Signed Observed: 06/23/2018 Status: F Source: [place] CULTURE, URINE 10:57 AM [facility] REPOSITORY Urine Culture ORGANISM 1: Presumptive E. coli Baggs Count >100,000 Presumptive E. coli: REACTION Amoxacillin/Clavulanic Acid $ <=2 S Ampicillin $ 4 S Ampicillin/Sulbactam $ <=2 S Cefazolin $ <=4 S Cefepime $ <=1 S Ceftriaxone $ <=1 S Ciprofloxacin $ <=0.25 S ESBL - Ertapenim $$$ <=0.5 S Gentamicin $ <=1 S Imipenem *NF <=0.25 S Levofloxacin $ <=0.12 S Nitrofurantoin $ <=16 S Piperacillin/Tazobactam $$ <=4 S Tobramycin $ <=1 S Trimethoprim/Sulfametho $ <=20 S (NF) indicates non-formulary drug at [facility]. Approval by Infectious Disease Specialist required before non-formulary drugs may be ordered and/or dispensed. Performed By: #### M100.0650 #### [facility] [address] [place], [address] SCREENING MAMM (CAD), Observed: 05/13/2018 Status: F Source: [place] BIL 7:43 AM [facility] REPOSITORY [facility] Imaging Services [address] [address] SCREENING MAMM (CAD), BILAT MR#: [id number] Acct: [id number] Name: BARBARA LOPEZ Rep #: [id number] : 1955 F 62 From: Hunter Benavides MD PCP: OUT OF TOWN DOCTOR Status: REG CLI Study: SCREENING MAMM (CAD), BILAT Date of Exam: 05/13/18 Exam# [id number] Ordering Dr: Eloise Chandler MD MAMMOGRAPHY - BILATERAL SCREENING REASON FOR EXAM: Female, 62 years old. Routine annual screening examination. PERTINENT HISTORY: Mother with breast cancer. TECHNIQUE: Digital bilateral breast babs (3D mammographic acquisition) in the CC and MLO projections. 2-D mediolateral oblique (MLO) and craniocaudad (CC) views of both breasts were obtained. CAD: Full Field Digital Mammography with Computer Added Detection was performed. COMPARISON: Comparison is made with prior study dated March 26, 2017 and October 31, 2013. FINDINGS: Breast Composition: The breasts are heterogeneously dense, which may obscure small masses. There are no dominant masses or suspicious calcifications. Stable small bilateral axillary lymph nodes. No other significant abnormalities are identified. There has been no significant change since the prior study. BI/SCREENING MAMM (CAD), BILAT IMPRESSION: Stable bilateral screening mammogram. Yearly follow-up mammogram recommended. (A) ASSESSMENT CATEGORY: BIRADS Category 1: Negative. A letter regarding these results will be sent to the patient by the facility within 30 days. Approximately 10% of breast cancers are not detected by mammography. A normal mammogram should not delay biopsy of a clinically suspicious abnormality. [id number] Electronically Signed: Hunter Benavides MD at 8:58 EST Tel [phone], Service support , CC: OUT OF TOWN DOCTOR; Eloise Weiner MD [employer] Director: Signed Observed: 02/21/2018 Status: F Source: [place] CULTURE, URINE 12:38 PM [facility] REPOSITORY Urine Culture ORGANISM 1: Escherichia coli Baggs Count >100,000 Escherichia coli: REACTION Amoxacillin/Clavulanic Acid $ <=2 S Ampicillin $ 8 S Ampicillin/Sulbactam $ 4 S Cefazolin $ <=4 S Cefepime $ <=1 S Ceftriaxone $ <=1 S Ciprofloxacin $ <=0.25 S ESBL - Ertapenim $$$ <=0.5 S Gentamicin $ <=1 S Imipenem *NF <=0.25 S Levofloxacin $ <=0.12 S Nitrofurantoin $ <=16 S Piperacillin/Tazobactam $$ <=4 S Tobramycin $ <=1 S Trimethoprim/Sulfametho $ <=20 S (NF) indicates non-formulary drug at [facility]. Approval by Infectious Disease Specialist required before non-formulary drugs may be ordered and/or dispensed. Performed By: #### M100.0650 #### [facility] [address] [place], [address] INITAL EVALUATION (1) Observed: 02/15/2018 Status: F Source: [place] - PT 2:44 PM [facility] REPOSITORY [facility] Physical Therapy [address] [place] [address] Fax REHABILITATION SERVICES INITIAL EVALUATION MR#: [id number] Acct: [id number] Name: BARBARA LOPEZ Rep #: [id number] : 1955 62 From: Dina Callahan MPT Referring Dr.: OUT OF TOWN DOCTOR Status: REG RCR Insurance: [facility] PACKAGE PLAN SELF PAY INSURANCE Patient's Visit Information BARBARA LOPEZ is a 62 year old F referred to Physical Therapy by AWAIS DECKER with a diagnosis of Pain in L shoulder, RC impingement, upper back pain.. Date of Evaluation: 02/15/18 Physical Therapist: Dina Callahan - Visit Plan Frequency: 2x /Week Duration: 4 Weeks Plan: 2X/ week for 4 weeks for L shoulder AAROM, PROM, AROM, scapular and RC strength, postural exercises with HEP. Modalities if needed. - Subjective Subjective: Her L shoulder hurts really bad. thinks it could be RC...she did not do anything to it that she knows of. She can not lay on it. Hard for her to reach for things. It is hard because it is painful. Pt is R handed. She reports that she can not lay on that side. This started about 3 months ago. It is getting worse. No N AND T. No neck pain currently but for a year before this she had neck pain then this started in. She feels that her L hand is weak. Her elbow down it does not hurt. Pt is not complaining of upper back pain. 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 Shoulder AROM: R shoulder flexion 160 degrees, L shoulder abd 156 degrees, IR T8, 51 degrees. L shoulder AROM: flexion: 104 degrees, abd 80 degrees, IR L5, 8 degrees. L shld MMT: flexion 3-/5, abd 3-/5 ( and painful), ER 3+/5, IR 3+/5. R shld MMT: flexion, abd, ER, and IR 4/5. + HK test for pain, + empty can for pain and weakness - Goals Goal 1:: I HEP Goal Time Frame: 4-6 Weeks Goal 2:: Increase L shoulder AROM to equal the R shoulder (at time of eval: Shoulder AROM: R shoulder flexion 160 degrees, L shoulder abd 156 degrees, IR T8, 51 degrees. L shoulder AROM: flexion: 104 degrees, abd 80 degrees, IR L5, 8 degrees) Goal Time Frame: 4-6 Weeks Goal 3:: Decrease L shoulder pain to 1/10 with reaching and lifting a gallon of milk Goal Time Frame: 4-6 Weeks - Rehabilitation Potential Rehabilitation Potential: Good - Anticipated Interventions Patient/Client Instruction: Educate patient on: Condition, Plan of Care For the Purpose of:: To decrease pain, To decrease swelling/inflammation, To increase ROM, To improve nutrient delivery to tissue, To improve muscle performance and motor function, To improve ability to perform ADL's, To increase tolerance to activity/condition/position, To improve performance and independence with ADL's, To improve ability of physical actions for home/community/work/leisure, To improve health of tissue, To decrease soft tissue restriction, To increase flexibility/ROM Therapeutic Exercise to Include: Strength training, Postural training, Flexibilty training, Passive ROM, Active ROM, Scapular Strength/Stabilization For the Purpose of:: To decrease pain, To decrease swelling/inflammation, To increase ROM, To improve nutrient delivery to tissue, To increase oxygenation perfusion, To improve muscle performance and motor function, To improve ability to perform ADL's, To increase tolerance to activity/condition/position, To improve ability of physical actions for home/community/work/leisure, To improve health of tissue, To decrease soft tissue restriction, To increase flexibility/ROM Manual Therapy Techniques to Include: Passive ROM For the Purpose of:: To increase ROM IF ES: Yes Cryotherapy (ice pack, ice massage): Yes Thermo therapy (hot pack): Yes Ultrasound (thermal/non thermal): Yes For the Purpose of:: To decrease pain, To decrease swelling/inflammation, To increase ROM, To improve nutrient delivery to tissue, To improve muscle performance and motor function Thank you for the opportunity to evaluate your patient. For Medicare and Medicare HMO plans, please review the plan of care and approve it. It will need to be FAXED BACK to us at [phone] for Medicare purposes. Please let me know if there are questions or concerns regarding this plan of care. Physician Signature: Date: <Electronically signed by Dina Callahan MPT> 02/15/18 1444 CC: OUT OF TOWN DOCTOR Signed For Medicare only, by signing this I certify the plan of care. Physicians Signature Date ABDOMEN/PELVIS WITHOUT Observed: 02/05/2018 Status: F Source: [place] CONT 7:15 AM [facility] REPOSITORY [facility] Imaging Services [address] [place] [address] Abdomen/Pelvis without Cont MR#: [id number] Acct: [id number] Name: TERESOANTONIOBARBARA Rep #: [id number] : 1955 F 62 From: Luke Sharma PCP: OUT OF TOWN DOCTOR Status: REG CLI Study: Abdomen/Pelvis without Cont Date of Exam: 02/05/18 Exam# [id number] Ordering Dr: Barbara Ragland MD STUDY: CT ABDOMEN AND PELVIS WITHOUT CONTRAST REASON FOR EXAM: Female, 62 years old. Bilateral kidney stones. Frequent urination. RADIATION DOSAGE (If Supplied By Facility): CTDIvol = ( 8.76 ) mGy, DLP = ( 407.06 ) mGycm TECHNIQUE: Transaxial images were obtained from the dome of the diaphragm to the symphysis pubis without oral contrast, and without intravenous contrast. Sagittal and coronal images were reconstructed. Individualized dose optimization techniques were used for this CT. COMPARISON: Ultrasound kidneys: 01/28/2018 FINDINGS: The visualized lung bases demonstrate no consolidation or pleural effusion. There is possible COPD. The visualized portions of the heart are within normal limits. Normal unenhanced liver. There are multiple gallstones. Normal unenhanced spleen and pancreas. Normal bilateral adrenal glands. Multiple inconspicuous punctate calculi are likely present in the right kidney. There is no right hydronephrosis. There are a few calculi in the left kidney, largest is 4 mm. There are 2.2 cm and 1.5 cm left renal parapelvic cysts. No demonstrated ureteral calculi. Normal visualized stomach. Normal small intestine. Moderately large amount of retained fecal debris is seen in the entire colon. There is non-visualization of the appendix. There is diffuse atherosclerotic calcification of the abdominal aorta and right common iliac artery, without a demonstrated aneurysm. Normal inferior vena cava. Normal retroperitoneum. There is borderline circumferential wall thickening of the urinary bladder demonstrated with possible pericystic edema and with intraluminal significant amount of air in the bladder, findings are suggestive of acute cystitis in the appropriate clinical context. There is atrophy of the uterus. There is a small /moderate size umbilical hernia containing fat. Unremarkable osseous structures. CT/Abdomen/Pelvis without Cont IMPRESSION: 1. Bilateral nephrolithiasis. Left renal parapelvic cysts. 2. Borderline circumferential wall thickening of the urinary bladder. Intraluminal air present in the bladder. There is possible pericystic edema present, findings are suspicious of acute cystitis in the appropriate clinical context. 3. Cholelithiasis. 4. Moderately increased colonic fecal debris. Electronically Signed: Tariq Sharma MD at 9:30 EDT Tel , Service support , CC: Barbara Ragland MD; OUT OF TOWN DOCTOR [employer] Director: Signed KIDNEY AND BLADDER Observed: 01/28/2018 Status: F Source: [place] 11:59 AM [facility] REPOSITORY [facility] [place] [address] Kidney and Bladder MR#: [id number] Acct: [id number] Name: BARBARA LOPEZ Rep #: [id number] : 1955 F 62 From: Rick Simon MD PCP: Care Physician, No Primary Status: REG CLI Study: Kidney and Bladder Date of Exam: 01/28/18 Exam# [id number] Ordering Dr: Barbara Ragland MD STUDY: RENAL ULTRASOUND - COMPLETE REASON FOR EXAM: Female, 62 years old. Frequent UTIs and urinary frequency TECHNIQUE: Ultrasound evaluation of the kidneys was performed with real-time and static bustos-scale imaging. COMPARISON: None. FINDINGS: RIGHT KIDNEY: Normal location of the right kidney, which is normal in size. The right kidney measures 11.1 x 3.9 x 5.6 cm. There is a normal cortex of the right kidney. The renal cortex measures 1.3 cm. There is no right renal mass or cyst. Several right renal calculi are seen measuring up to 8 mm. There is no right hydronephrosis. DISTAL RIGHT URETER: There is non-visualization of the distal right ureter. There is no demonstrated right ureterovesical junction calculus. There is a visualized right ureteral jet. LEFT KIDNEY: Normal location of the left kidney, which is normal in size. The left kidney measures 10.4 x 4.0 x 6.0 cm. There is a normal cortex of the left kidney. The renal cortex measures 1.4 cm. There is a 2.1 x 1.3 x 1.4 cm left renal cyst. There are several left renal calculi measuring up to 9 mm. There is no left hydronephrosis. DISTAL LEFT URETER: There is non-visualization of the distal left ureter. There is no demonstrated left ureterovesical junction calculus. There is a visualized left ureteral jet. BLADDER: The distended urinary bladder has a volume of 98 ml. The empty urinary bladder has a volume of 91 ml. There is a normal wall thickness of the distended urinary bladder. There is no demonstrated mass within the urinary bladder. There are no demonstrated bladder calculi. US/Kidney and Bladder IMPRESSION: Bilateral renal calculi and left renal cyst as detailed above. 91 cc of residual urine seen in the bladder on the postvoiding images. Electronically Signed: Edward Walkowski, MD at 21:46 EDT , Service support , CC: No Primary Care Physician; Barbara Ragland MD Children'S Ministry Director: Signed Observed: 01/26/2018 Status: F Source: [place] CULTURE, URINE 2:29 PM [facility] REPOSITORY Urine Culture #2 Below infection level. 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 Approval by Infectious Disease Specialist required before non-formulary drugs may be ordered and/or dispensed. * CLSI guidelines does not recommend testing of cephalosporins. This interpretation is deduced from Beta-lactam/penicillin results. Performed By: #### M100.0650 #### [facility] [address] [place], [address] SHOULDER MIN 2 VIEWS Observed: 01/18/2018 Status: F Source: [place] 10:28 AM [facility] REPOSITORY [facility] Imaging Services [address] [place] [address] Shoulder min 2 Views MR#: [id number] Acct: [id number] Name: ALONDRA LOPEZRIC Calderon Rep #: [id number] : 1955 F 62 From: Moe Wagner MD PCP: Status: REG CLI Study: Shoulder min 2 Views Date of Exam: 01/18/18 Exam# [id number] Ordering Dr: Mercedes Benites. STUDY: X-RAY - LEFT SHOULDER REASON FOR EXAM: Female, 62 years old. No recent injury. Pain in the left shoulder. TECHNIQUE: 4 view(s) of the shoulder. COMPARISON: None. FINDINGS: Mild osteopenia. Thoracic structures within the field of view exhibit no acute process. Mild chronic AC joint arthrosis with mild capsular prominence. No apparent separation. Normal glenohumeral articulation. Normal periarticular soft tissues. No shoulder fracture. RAD/Shoulder min 2 Views IMPRESSION: Mild chronic AC joint arthrosis. Electronically Signed: Moe Kristy, at 11:34 EDT Tel , Service support , CC: OUT OF TOWN DOCTOR Children'S Ministry Director: Signed ALLERGIES ALLERGIES DATE TYPE / CODE NAME / CODE REACTION SEVERITY SOURCE 07/22/2018 Drug Sulfa Hives Unknown [facility] Allergy/4160 (Sulfonamide Hospital 12929(SNOMED Antibiotics)/ Repository CT) [id number](RX NORM) ENCOUNTERS ENCOUNTERS ADMIT/DISCHARGE ACCOUNT ADMITTING ENCOUNTER LOCATION SOURCE NUMBER CLASS 07/22/2018/ [id number] Toby, Ambulatory [facility] 9 3 [facility] ing:PCURoom: Repository [id number]: 1 07/22/2018 [id number] Toby, Ambulatory BMSBuilding:B [facility] 8 [facility] Repository 07/21/2018 [id number] Ambulatory [place] 9 [facility] ing:PT Repository 06/23/2018 [id number] Ambulatory [facility] 4 [facility] ing:LABSPEC Repository 06/16/2018 [id number] Ambulatory [place] [facility] 6 [facility] ing:MASS Repository 05/13/2018 [id number] Ambulatory [place] [facility] 1 [facility] ing:OPBI Repository 05/04/2018/ [id number] Ambulatory [place] [facility] 8 8 [facility] ing:PT Repository 02/21/2018 [id number] Ambulatory [facility] 7 [facility] ing:MTLAB Repository 02/05/2018 [id number] Ambulatory [place] 3 [facility] ing:CT Repository 01/28/2018 [id number] Ambulatory [place] [facility] 1 [facility] ing:US Repository 01/26/2018 [id number] Ambulatory [place] 8 [facility] ing:MTLAB Repository 01/18/2018 [id number] Ambulatory [place] 7 [facility] ing:RAD Repository PAYERS PAYERS ENCOUNTER GUARANTOR PAYER SUBSCRIBER SOURCE 07/22/2018 JAMES E Primary NOT GIVENUNK [place] [id number] Insurance:SELF PAY [place], [place] Number: Effective Repository [id number]: (330) Date:2018-07-22290 () 07/22/2018 JAMES E Primary NOT GIVENUNK [place] [id number] Insurance:SELF PAY [place] Number: Effective Repository [id number]: (330) Date:2018-07-22290 () 07/21/2018 JAMES E Primary Insurance:[facility] BARBARA E [facility] [id number] [facility] RAMSIERD[facility] Number: [id number] [id number] Repository 85[address]Kam: (330) Date:2018-07-08290 () 07/21/2018 Secondary NOT GIVENUNK [place] Insurance:SELF PAY [facility] Number: Effective Repository Date:2018-07-08 06/23/2018 JAMES E Primary NOT GIVENUNK [place] [id number] Insurance:SELF PAY [place] Number: Effective Repository [phone]: (330) Date:2018-06-23290 () 06/16/2018 JAMES E Primary NOT GIVENUNK [place] [id number] Insurance:SELF PAY [place] Number: Effective Repository [id number]: (330) Date:2016-07-23290 () 05/13/2018 JAMES E Primary Insurance:[facility] BARBARA E [place] [id number] PACKAGE PLANPolicy RAMSIERDOB[facility] Number: [id number] [id number] Repository 88809Usb: (330) Date:2018-05-0452902 () 05/13/2018 Secondary NOT GIVENUNK [place] Insurance:SELF PAY [facility] Number: Effective Repository Date:2018-05-04 05/04/2018 James E Primary Insurance:[facility] BARBARA E [place] [id number] PACKAGE PLANPolicy RAMSIERDOB: [facility] Number: [id number] [id number] Repository 60147Gtn: (330) Date:2018-02-14 [id number] () 05/04/2018 Secondary NOT GIVENUNK [place] Insurance:SELF PAY [facility] Number: Effective Repository Date:2018-02-14 02/21/2018 James E Primary NOT GIVENUNK [place] [id number] Insurance:SELF PAY [place] Number: Effective Repository [id number]: (330) Date:2018-02-21290 () 02/05/2018 James E Primary Insurance:[facility] BARBARA E [place] [id number] PACKAGE PLANPolicy RAMSIERDOB: [facility] Number: [id number], [place] [id number] Repository 28022Sir: (330) Date:2018-02-03 [phone] (HP) 02/05/2018 Secondary NOT GIVENUNK [place] Insurance:SELF PAY [facility] Number: Effective Repository Date:2018-02-03 01/28/2018 James E Primary Insurance:[facility] BARBARA E [place] [id number] PACKAGE PLANPolicy RAMSIERDOB: [facility] Number: [id number], [place] [id number] Repository 67709Xkp: (330) Date:2018-01-262902 () 01/28/2018 Secondary NOT GIVENUNK [place] Insurance:SELF PAY [facility] Number: Effective Repository Date:2018-01-26 01/26/2018 James Calderon Primary NOT GIVENUNK [place] [id number] Insurance:SELF PAY [place] Number: Effective Repository [id number]: (330) Date:2018-01-26 [phone] () 01/18/2018 James Calderon Primary Insurance:[facility] BARBARA E [place] [id number] [facility] RAM[facility]: [facility] Number: Effective [id number] Date:2018-01-18 Repository 63015Oxj: () 01/18/2018 Secondary NOT GIVENUNK [place] Insurance:SELF PAY [facility] Number: Effective Repository Date:2018-01-18
--- OUTSIDE RECORDS SUMMARY | 2018-09-18 14:56 | XMS RPT_ITS ---
:1955 Author Organization [employer] Address [address] [place] [phone] Phone Care Team Providers Name Role Phone Jason Cardenas MD Unavailable Reason for Visit Reason For Visit Description Start Date New/Est - 1st visit with physician Preliminary reason for visit data, not yet signed by the author as of left shoulder pain Preliminary reason for visit data, not yet signed by the author as of Chief Complaint Chief Complaint Description Start Date left shoulder pain Preliminary chief complaint data, not yet signed by the author as of Instructions No information available. Plan of Care Type Date Detail Appointment 09:30 AM Jason Cardenas MD, [facility] [facility], [place], [address], Appointment 08:00 AM Elana Dunham PA-C, [address] [facility] [facility], [place], [address], Medications Medication Instructions Start Stop Generic Name NDC Provider Date Date CEPHALEXIN 250 1 tablet daily CEPHALEXIN 52683388162 Jason Lopez MG CAPS 1 Ronald MORENO OXYBUTYNIN 1 tablet daily OXYBUTYNIN 30103127182 Jason Lopez CHLORIDE ER 10 1 CHLORIDE Ronald MORENO MG [id number] Conditions or Problems Problem Name Problem Code Onset Status Entry Provider Comment Standard Annotate Date Date Description Adhesive [id number] Active Jason Lopez Adhesive capsulitis (SNOMED CT) 07/08 07/08 Ronald MORENO capsulitis of left of left shoulder shoulder Allergies, Adverse Reactions, Alerts Allergy Name Reaction Start Date Severity Status Provider Description SULFA Critical Active Jason Cardenas MD Social History Concept Description Observation Name Observation Value Units Start Date Alcohol use ETOH USE No Preliminary social history data, not yet signed by the author as of Details of drug DRUG USE No misuse behavior Preliminary social history data, not yet signed by the author as of 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 Preliminary social history data, not yet signed by the author as of Never smoker SMOK STATUS never smoker Preliminary social history data, not yet signed by the author as of Vital Signs Date Name Value Unit Description BMI (Body Mass 24.81 kg/m2 Body Mass Index Index) [Ratio] Preliminary vital sign data, not yet signed by the author as of BP Diastolic 79 mm[Hg] blood pressure, diastolic Preliminary vital sign data, not yet signed by the author as of BP Systolic 121 mm[Hg] blood pressure, systolic Preliminary vital sign data, not yet signed by the author as of Heart Rate 56 /min pulse rate E&M Preliminary vital sign data, not yet signed by the author as of Height 64 [in_us] height E&M Preliminary vital sign data, not yet signed by the author as of Height 163 cm height in centimeters E&M Preliminary vital sign data, not yet signed by the author as of Weight Measured 144 [lb_av] weight E&M Preliminary vital sign data, not yet signed by the author as of Weight Measured 65 kg weight in kilograms E&M Preliminary vital sign data, not yet signed by the author as of Results Date Name Value Unit Range Flag Description Office Visit: New/Est - 1st visit with physician, Rm: 43 MEDS REVIEW Done Documentation of current medications (procedure) Preliminary observation data, not yet signed by the author as of SMOK STATUS never smoker Tobacco smoking status NHIS Preliminary observation data, not yet signed by the author as of XRAY HX of the left xray history shoulder on 11/2017 at [facility] Preliminary observation data, not yet signed by the author as of Preliminary observation data, not yet signed by the author as of Clinical Summary: Scanned ROS Summary ROS: Denies genitourinary review of systems, E&M ROS: GI Denies ROS gastrointestinal E&M ROS ENDO Denies endocrine ROS ROS MSK COMM Pain ROS Musculoskeletal comments ROS:MUSCSKEL Complains ROS musculoskeletal E&M ROS: PSYCH Denies ROS psychiatric E&M ROS HEME Denies ROS hematologic/lymphatic E&M ROS SKIN Denies ROS skin E&M ROS ENT Denies ROS ENT E&M ROS:GENERAL Denies ROS general E&M ROS: NEURO Denies ROS neurological E&M ROS:PULMON Denies ROS pulmonary E&M ROS: CARDIAC Denies ROS cardiovascular E&M Clinical Summary: HMSPatientID OOP account number Procedures Code Procedure Name Date Entry Date CPT-73156 Physical Therapy G8730 Pain assessment documented as positive - follow-up documented G8427 Current medications documented 1036F Tobacco screening was negative - non user G8420 BMI documented within normal parameters - no follow-up plan is required G8783 Blood pressure within normal parameters - no follow-up required [facility]-[id number] Patient Encounter Medications Administered No information available. Immunizations No information available. Advance Directives There may be information available, but it has not been provided by the sender. Assessments There may be information available, but it has not been provided by the sender. Review of Systems There may be information available, but it has not been provided by the sender. Family History There may be information available, but it has not been provided by the sender. History of Past Illness There may be information available, but it has not been provided by the sender. History of Present Illness There may be information available, but it has not been provided by the sender.
--- NOTE | 2018-09-28 15:18 | HP.PT.NRP ---
HP - Discharge Summary (1) - Patient Information BARBARA LOPEZ was seen in my office for initial evaluation on 07/15/18. The following Plan of Care was established for this patient: Initial Frequency: 2-3x /Week Initial Duration: 4-6 Weeks - Anticipated Interventions Patient/Client Instruction: Educate patient on: Condition, Plan of Care For the Purpose of:: To decrease pain, To increase ROM, To improve performance and independence with ADL's Therapeutic Exercise to Include: Strength training, Passive ROM, Active ROM For the Purpose of:: To decrease pain, To increase ROM, To improve muscle performance and motor function, To improve ability of physical actions for home/community/work/leisure Manual Therapy Techniques to Include: Soft tissue mobilization For the Purpose of:: To improve nutrient delivery to tissue Cryotherapy (ice pack, ice massage): Yes Ultrasound (thermal/non thermal): Yes - thermal L UT For the Purpose of:: To decrease swelling/inflammation This patient was last seen in our office 08/05/18. Pertinent comments regarding their Physical therapy will appear below: Pt seen 5 visits and 90% better. Was to continue at home and f/u 3 weeks later. Did not attend or schedule that visit. I have talked to her in public since adn she is doing well. Will discontinue due to nonattendance. At this point I will be discontinuing this patient from physical therapy. I would be happy to see this patient again in the future if found appropriate by the physician. Thank you! Moy Meade, DPT, OCS, CSCS
== END 2018-08-05 19:00 | disposition home or self-care (01) ==
LOC: PT 08:00
PROVIDERS: Referring Provider Orthopaedic Surgery; Visit Provider Orthopaedic Surgery
DX: M75.02 Adhesive capsulitis of left shoulder (principal)
CPT/HCPCS: 97035; 97110; 97140; 97161

== ENCOUNTER → 2019-07-12 10:52 | Outpatient (CLI) | payer SELFPAY ==
[2018-12-21 10:38] VITALS: BMI 24.5
--- NOTE | 2019-07-12 10:57 | BI_ITS ---
MAMMOGRAPHY - BILATERAL SCREENING REASON FOR EXAM: Female, 64 years old. Routine annual screening examination. PERTINENT HISTORY: Mother with breast cancer. History of prior right breast biopsy. TECHNIQUE: Digital bilateral breast darwin (3D mammographic acquisition) in the CC and MLO projections. 2-D mediolateral oblique (MLO) and craniocaudad (CC) views of both breasts were obtained. CAD: Full Field Digital Mammography with Computer Added Detection was performed. COMPARISON: Comparison is made with prior study dated May 13, 2018 and March 26, 2017. FINDINGS: Breast Composition: The breasts are heterogeneously dense, which may obscure small masses. There are no dominant masses or suspicious calcifications. Stable small benign-appearing bilateral axillary lymph nodes. No other significant abnormalities are identified. There has been no significant change since the prior study. BI/SCREEN MAMM (CAD) W/DARWIN BILAT IMPRESSION: Stable bilateral screening mammogram. Yearly follow-up mammogram recommended. (A) ASSESSMENT CATEGORY: BIRADS Category 2: Benign. A letter regarding these results will be sent to the patient by the facility within 30 days. Approximately 10% of breast cancers are not detected by mammography. A normal mammogram should not delay biopsy of a clinically suspicious abnormality. UT1994 Electronically Signed: Hunter Benavides, at 12:33 EST , Service support ,
== END ==
PROVIDERS: Referring Provider Obstetrics & Gynecology; Visit Provider Obstetrics & Gynecology
DX: Z12.31 Encounter for screening mammogram for malignant neoplasm of breast (principal); Z78.0 Asymptomatic menopausal state
CPT/HCPCS: 77063; 77067

== ENCOUNTER 2019-07-27 08:56 | Day surgery (SDC) | payer SELFPAY ==
[2018-12-21 10:38] VITALS: BMI 24.5
[2019-07-26] VITALS (7 sets, daily range): BP systolic 108–154; BP diastolic 75–85; PULSE 54–69; RESP 16; TEMP 36.7–36.9; O2SAT 95–100; BMI 26.9
--- NOTE | 2019-07-26 08:04 | HP.PCM_ITS ---
History of Present Illness Date of Admission: 07/26/19 The patient is a 64 year old F presents for screening colonoscopy due to history of colon polyps. Patient's last colonoscopy was 8 to 10 years ago at [facility] and unable to obtain the report, per patient 1 colon polyp at that time. Patient denies any chronic abdominal pain/nausea/vomiting/reflux. Patient has bowel moods about every other day denies any blood. Denies any family history of colon cancer. Past Medical/Surgical History - Planned Operation Planned Operative Procedure/s: cscope open access Date of Operative Procedure: 07/26/19 Permit Signed: No S.O.S: No Is This Patient Having a Total Joint: No - Previous Hospitalizations/Surgeries HX Hospitalizations: Yes - 2019 HX of Surgeries: csection x5. tubal reversal. tonsillectomy. foot surgery. tubal ligation. cscope Any Problems With Anesthesia: No You/Your Family Experience Fever (Hyperthermia) With Anes: No Cholinesterase deficiency: No - Cardiovascular Hx Chest Pain within Last 2 months: No Hx of Irregular Heartbeat and/or Afib: No Hx Heart Attack: No Hx Congestive Heart Failure: No Hx Rheumatic Fever: No Hx Hypertension: No Hx Internal Defibrillator: No Hx Pacemaker: No Hx Cardiac Catheterization: No Hx Cardiac Surgery/Stents/Etc.: No Hx Stress Test: Yes - 2019 HX Edema: No Hx Pain in Legs when Walking/Leg Cramps: No - Respiratory Chronic Cough: No HX of Shortness of Breath: No Hoarseness: No Hx Chronic Obstructive Pulmonary Disease (COPD): No Hx Asthma: No Hx Emphysema: No Hx Sleep Apnea: No Hx Oxygen Use at Home: No Hx Respiratory Tract Infection/Cold (presently): No Do You Snore Loudly (louder than talking or can be heard): No Do You Often Feel Tired/ Fatigued/ Sleepy Dring Daytime?: No Has Anyone Observed You Stop Breathing During Sleep?: No Result (for STOP score): Negative Hx Smoking: No Smoking Status: Never smoker - Gastrointestinal Hx Gastroesophageal Reflux: No Hx Gastrointestinal Disorders: No Hx Gastrointestinal Bleed: No Hx Ulcer: No Hx Hiatal Hernia: No Difficulty Chewing/Swallowing: No Recent Onset of Swallowing Problems: No Special diet followed at home: No Hx Unplanned Weight Loss of 20#: No HX Unplanned Weight Gain of 20#: No - Neurological Hx Seizures: No HX Syncope/Blackout Spells/Unconsciousness: No Hx CVA/Stroke: No Hx Transient Ischemic Attacks (TIA): No Hx Multiple Sclerosis: Yes - 28 yrs ago Hx Parkinson's Disease: No Hx Head/Neck Injury: No Hx Headaches: No Hx Back Injury/Pain: No Recent Onset of Speech Difficulty: No Restless Legs: No Does patient have nerve stimulator: No Patient instructed to have device shut off: No Rep notified?: No - Blood Disorder Hx Leukemia: No Bleeding Tendencies: No Hx Deep Vein Thrombosis: No Hx High Cholesterol: Yes - no meds currently Blood Transmitted Disease: No Hx Hepatitis: No Hx Cirrhosis: No Hx Anemia: No Hx Blood Disorders: No - Reproduction : No Is Patient Lactating: No Hx Hysterectomy: No Hx Tubal Ligation: Yes Are You Post Menopause: Yes - Genitourinary Hx Renal Disease: Yes - kidney stone/uti being treated with antibiotic Hx Dialysis: No - Musculoskeletal Hx Arthritis: No Hx Rheumatoid Arthritis: No Hx Gout: No Recent Onset of an Orthopedic Problem: No - Endocrine Hx Diabetes: No Thyroid Disease: No Hx Steroid Therapy: No - Psycho/Social Hx Substance Use: No Hx Alcohol Use: No Hx Anxiety: No Hx Depression: No Mental Illness: No Hx Dementia: No - Miscellaneous Hx Cancer: No Recent Exposure to Contagious Disease: No Active MRSA: No Hx of C-Diff: No Any Loose Teeth: No Allergies Sulfa (Sulfonamide Antibiotics) Allergy (Verified 07/26/19 08:12) Hives Paternal Heart Disease - Discharge Is Pt Admitted From a Longterm, or a Care Home: No Who Could Help: family After D/C, Where Do you Plan to Go: Return Home - From the PAT History Number of Risk Factors: 2 - Physical Exam Vitals/I&O's: Body Mass Index (BMI) 24.5 General: Alert, Oriented x3, Cooperative, No apparent distress HEENT: Atraumatic Lungs: Normal air movement Cardiovascular: Regular rate Abdomen: Soft, Non Tender, Non-Distended Extremities: No clubbing, No cyanosis, No edema Neurological: Cranial nerves II-XII grossly intact Psych/Mental Status: Normal Affect Assessment/Plan All Active Problems Laceration of left hand (Acute) Atypical chest pain (Acute) 64-year-old female with history of colon polyps Surgery Risks - Colonoscopy I discussed with the patient the risks of the procedure: Yes Risks Include but are not Limited To: Risks include but are not limited to: Bleeding, perforation requiring further surgery, inability to complete colonoscopy requiring barium enema. All questions were answered. Patient has been no further questions
[2019-07-26] MEDS: Lactated Ringers 1,000 ML 100 ML IV (08:21)
--- NOTE | 2019-07-26 09:11 | OP.COLON_ITS ---
Patient Name: Suzan Dunn Procedure Date: 07/26/2019 8:47 AM Date of : 1955 Age: 64 Procedure: Colonoscopy Indications: High risk colon cancer surveillance: Personal history of colonic polyps Providers: Calista Sanders MD Referring MD: Dedra Regan Md Medicines: Monitored Anesthesia Care Patient Profile: Last Colonoscopy: 8 years ago. Complications: No immediate complications. Procedure: Pre-Anesthesia Assessment: - Prior to the procedure, a History and Physical was performed, and patient medications and allergies were reviewed. The patient's tolerance of previous anesthesia was also reviewed. The risks and benefits of the procedure and the sedation options and risks were discussed with the patient. All questions were answered, and informed consent was obtained. Prior Anticoagulants: The patient has taken no previous anticoagulant or antiplatelet agents. ASA Grade Assessment: II - A patient with mild systemic disease. After reviewing the risks and benefits, the patient was deemed in satisfactory condition to undergo the procedure. After I obtained informed consent, the scope was passed under direct vision. Throughout the procedure, the patient's blood pressure, pulse, and oxygen saturations were monitored continuously. The colonoscope was introduced through the anus and advanced to the rectum. The quality of the bowel preparation was poor. Scope In: 8:59:51 AM Scope Out: 9:01:46 AM Total Procedure Duration Time 0 hours 1 minute 55 seconds Findings: solid stool manually removed A moderate amount of solid stool was found in the rectum, precluding visualization. Unable to complete scope due to solid stool, will have pt do additional prep and come back for another colonoscopy Impression: - Preparation of the colon was poor. - Stool in the rectum. - No specimens collected. Recommendation: - Discharge patient to home. - Resume previous diet. - Repeat colonoscopy at appointment to be scheduled because the bowel preparation was poor. - Continue present medications. Procedure Code(s): --- Professional --- 93196, 53,PT, Colonoscopy, flexible; diagnostic, including collection of specimen(s) by brushing or washing, when performed (separate procedure) Diagnosis Code(s): --- Professional --- Z86.010, Personal history of colonic polyps CPT copyright 2017 [employer]. All rights reserved. The codes documented in this report are preliminary and upon administrative staff supervisor review may be revised to meet current compliance requirements. MD Calista Tucker MD 07/26/2019 9:11:14 AM This report has been signed electronically. Number of Addenda: 0 Note Initiated On: 07/26/2019 8:47 AM
--- NOTE | 2019-07-26 09:11 | OP.CCLET_ITS ---
07/26/2019 Dedra Regan Md Re : Colonoscopy procedure for Suzan Pavonr Miguelinabev This procedure was performed on Friday, July 26, 2019. My impressions and recommendations are as follows: Impressions : - Preparation of the colon was poor. - Stool in the rectum. - No specimens collected. Recommendations : - Discharge patient to home. - Resume previous diet. - Repeat colonoscopy at appointment to be scheduled because the bowel preparation was poor. - Continue present medications. My findings are described in the full procedure note, which is enclosed. If I can be of further assistance, please feel free to contact me at Doctor phone number(s): , Work: . Sincerely, MD Calista Tucker MD 07/26/2019 9:11:14 AM This report has been signed electronically.
--- NOTE | 2019-07-27 | COLBX_PTH ---
PATIENT: BARBARA LOPEZ LOC: EN U#:[id number] AGE/SX: 64/F ROOM: RE07/27/[address]: Dr. Calista Sanders MD : 1955 BED: DIS: 07/27/2019 SPEC #: [id number] RECD: 07/27/19 11:34 STATUS: ELANA RESony #: [id number] CINTHYA: 07/27/19 00:[address]: Calista Sanders DEPT: SURGICAL PATHOLOGY RECD BY: Ruslan Adrian ENTERED: 07/27/19 13:41 SP TYPE: COLON BX OTHR DR: Dr. Dedra Regan MD Tissues: A - Ascending colon B - Ascending colon C - COLON BIOPSY D - Transverse colon E - Transverse colon F - Transverse colon G - Transverse colon Procedures: Surgery Specimen Level IV HEADER OPERATION: Colonoscopy - open access (MAC) PRE-OP DIAGNOSIS: History polyps TISSUE SUBMITTED: A - Proximal ascending polyp, B - Mid ascending polyp (saline lift), C - Hepatic flexure polyp, D - Proximal transverse polyp #1, E - Mid transverse polyp x2, F - Proximal transverse polyp biopsy #2, G - Mid transverse polyp biopsy #2 (saline lift) MICROSCOPIC DIAGNOSIS A. Proximal ascending colon polyp, biopsy: Fragments of hyperplastic polyp. B. Mid ascending colon polyp, biopsy: Fragments of hyperplastic polyp. C. Colonic polyp at hepatic flexure, biopsy: Fragments of hyperplastic polyp. D. Proximal transverse colon polyp #1, biopsy: Fragments of hyperplastic polyp. E. Mid transverse colon polyp x2, biopsy: Fragments of hyperplastic polyp. F. Proximal transverse colon polyp #2, biopsy: Fragments of tubular adenoma. G. Mid transverse colon polyp #2, biopsy: Fragments of serrated adenoma. AM:lindsey 07/28/19 COMMENT Case has been reviewed in consultation with Dr. Armijo who concurs with the above diagnosis. IDC:SJ MICROSCOPIC DESCRIPTION Slides are reviewed. GROSS DESCRIPTION A - Received in fixative is one container labeled with the patient's name and designated proximal ascending polyp. The specimen consists of multiple irregular fragments of light morris soft tissue that in aggregate measure 1.5 x 0.3 x 0.1 cm. The specimen is totally submitted in one cassette. B - Received in fixative is one container labeled with the patient's name and designated mid ascending polyp. The specimen consists of one irregular fragment of light morris soft tissue that measures 0.5 x 0.4 x 0.2 cm. The specimen is totally submitted in one cassette. C - Received in fixative is one container labeled with the patient's name and designated hepatic flexure polyp. The specimen consists of multiple irregular fragments of light morris soft tissue that in aggregate measure 0.5 x 0.5 x 0.1 cm. The specimen is totally submitted in one cassette. D - Received in fixative is one container labeled with the patient's name and designated proximal transverse polyp #1. The specimen consists of two irregular fragments of light morris soft tissue that in aggregate measure 0.6 x 0.4 x 0.1 cm. The specimen is totally submitted in one cassette. E - Received in fixative is one container labeled with the patient's name and designated mid transverse polyp x2. The specimen consists of multiple irregular fragments of light morris soft tissue that in aggregate measure 2.5 x 0.5 x 0.1 cm. The specimen is totally submitted in one cassette. F - Received in fixative is one container labeled with the patient's name and designated proximal transverse polyp biopsy #2. The specimen consists of two irregular fragments of light morris soft tissue that in aggregate measure 0.5 x 0.3 x 0.1 cm. The specimen is totally submitted in one cassette. G - Received in fixative is one container labeled with the patient's name and designated mid transverse polyp biopsy #2. The specimen consists of multiple irregular fragments of light morris soft tissue that in aggregate measure 1.5 x 0.4 x 0.1 cm. The specimen is totally submitted in one cassette. / SJ:rg 07/27/19 TC:5 CPT: 64851 x7
[2019-07-27 09:19] VITALS: BP 109/64; PULSE 68; RESP 14; TEMP 36.1; O2SAT 99; BMI 26.9
--- NOTE | 2019-07-27 09:27 | PCM.HP.BLA ---
History and Physical Date of Admission: 07/27/19 History and Physical 07/26/19 0804 MR#: [id number] Acct: [id number] Name: BARBARA LOPEZ Rep #: [id number] : 1955 64 From: Calista Sanders MD PCP: Dedra Regan MD Status: REG SDC Y Location: [place] [address] History of Present Illness Date of Admission: 07/26/19 The patient is a 64 year old F presents for screening colonoscopy due to history of colon polyps. Patient's last colonoscopy was 8 to 10 years ago at [facility] and unable to obtain the report, per patient 1 colon polyp at that time. Patient denies any chronic abdominal pain/nausea/vomiting/reflux. Patient has bowel moods about every other day denies any blood. Denies any family history of colon cancer. Past Medical/Surgical History - Planned Operation Planned Operative Procedure/s: cscope open access Date of Operative Procedure: 07/26/19 Permit Signed: No S.O.S: No Is This Patient Having a Total Joint: No - Previous Hospitalizations/Surgeries HX Hospitalizations: Yes - 2019 HX of Surgeries: csection x5. tubal reversal. tonsillectomy. foot surgery. tubal ligation. cscope Any Problems With Anesthesia: No You/Your Family Experience Fever (Hyperthermia) With Anes: No Cholinesterase deficiency: No - Cardiovascular Hx Chest Pain within Last 2 months: No Hx of Irregular Heartbeat and/or Afib: No Hx Heart Attack: No Hx Congestive Heart Failure: No Hx Rheumatic Fever: No Hx Hypertension: No Hx Internal Defibrillator: No Hx Pacemaker: No Hx Cardiac Catheterization: No Hx Cardiac Surgery/Stents/Etc.: No Hx Stress Test: Yes - 2019 HX Edema: No Hx Pain in Legs when Walking/Leg Cramps: No - Respiratory Chronic Cough: No HX of Shortness of Breath: No Hoarseness: No Hx Chronic Obstructive Pulmonary Disease (COPD): No Hx Asthma: No Hx Emphysema: No Hx Sleep Apnea: No Hx Oxygen Use at Home: No Hx Respiratory Tract Infection/Cold (presently): No Do You Snore Loudly (louder than talking or can be heard): No Do You Often Feel Tired/ Fatigued/ Sleepy Dring Daytime?: No Has Anyone Observed You Stop Breathing During Sleep?: No Result (for STOP score): Negative Hx Smoking: No Smoking Status: Never smoker - Gastrointestinal Hx Gastroesophageal Reflux: No Hx Gastrointestinal Disorders: No Hx Gastrointestinal Bleed: No Hx Ulcer: No Hx Hiatal Hernia: No Difficulty Chewing/Swallowing: No Recent Onset of Swallowing Problems: No Special diet followed at home: No Hx Unplanned Weight Loss of 20#: No HX Unplanned Weight Gain of 20#: No - Neurological Hx Seizures: No HX Syncope/Blackout Spells/Unconsciousness: No Hx CVA/Stroke: No Hx Transient Ischemic Attacks (TIA): No Hx Multiple Sclerosis: Yes - 28 yrs ago Hx Parkinson's Disease: No Hx Head/Neck Injury: No Hx Headaches: No Hx Back Injury/Pain: No Recent Onset of Speech Difficulty: No Restless Legs: No Does patient have nerve stimulator: No Patient instructed to have device shut off: No Rep notified?: No - Blood Disorder Hx Leukemia: No Bleeding Tendencies: No Hx Deep Vein Thrombosis: No Hx High Cholesterol: Yes - no meds currently Blood Transmitted Disease: No Hx Hepatitis: No Hx Cirrhosis: No Hx Anemia: No Hx Blood Disorders: No - Reproduction : No Is Patient Lactating: No Hx Hysterectomy: No Hx Tubal Ligation: Yes Are You Post Menopause: Yes - Genitourinary Hx Renal Disease: Yes - kidney stone/uti being treated with antibiotic Hx Dialysis: No - Musculoskeletal Hx Arthritis: No Hx Rheumatoid Arthritis: No Hx Gout: No Recent Onset of an Orthopedic Problem: No - Endocrine Hx Diabetes: No Thyroid Disease: No Hx Steroid Therapy: No - Psycho/Social Hx Substance Use: No Hx Alcohol Use: No Hx Anxiety: No Hx Depression: No Mental Illness: No Hx Dementia: No - Miscellaneous Hx Cancer: No Recent Exposure to Contagious Disease: No Active MRSA: No Hx of C-Diff: No Any Loose Teeth: No Allergies Sulfa (Sulfonamide Antibiotics) Allergy (Verified 07/26/19 08:12) Hives Paternal Heart Disease - Discharge Is Pt Admitted From a Intermediate, or a Penitentiary: No Who Could Help: family After D/C, Where Do you Plan to Go: Return Home - From the PAT History Number of Risk Factors: 2 - Physical Exam Vitals/I&O's: Body Mass Index (BMI) 24.5 General: Alert, Oriented x3, Cooperative, No apparent distress HEENT: Atraumatic Lungs: Normal air movement Cardiovascular: Regular rate Abdomen: Soft, Non Tender, Non-Distended Extremities: No clubbing, No cyanosis, No edema Neurological: Cranial nerves II-XII grossly intact Psych/Mental Status: Normal Affect Assessment/Plan All Active Problems Laceration of left hand (Acute) Atypical chest pain (Acute) 64-year-old female with history of colon polyps Surgery Risks - Colonoscopy I discussed with the patient the risks of the procedure: Yes Risks Include but are not Limited To: Risks include but are not limited to: Bleeding, perforation requiring further surgery, inability to complete colonoscopy requiring barium enema. All questions were answered. Patient has been no further questions 07/26/19 0842 <Electronically signed by Calista Sanders MD> Date Calista Sanders MD
[2019-07-27 11:05] VITALS: BP 129/75; BP 135/79; PULSE 68; RESP 16; TEMP 36.6; O2SAT 100
--- NOTE | 2019-07-27 11:09 | OP.CCLET_ITS ---
07/27/2019 Dedra Regan Md Re : Colonoscopy procedure for Suzan Perez Miguelinabev This procedure was performed on June. My impressions and recommendations are as follows: Impressions : - Hemorrhoids found on perianal exam. - Five 4 to 7 mm polyps in the proximal transverse colon, in the mid transverse colon, at the hepatic flexure and in the proximal ascending colon, removed with a hot snare. Resected and retrieved. - One 5 mm polyp in the mid ascending colon, removed using injection-lift and a hot snare. Resected and retrieved. - Two 3 to 5 mm polyps in the proximal transverse colon and in the mid transverse colon, removed with a cold biopsy forceps. Resected and retrieved. - Internal hemorrhoids. - The examination was otherwise normal. Recommendations : - Discharge patient to home. - Resume previous diet. - Continue present medications. - Await pathology results. - Repeat colonoscopy in 1 year for surveillance based on pathology results. My findings are described in the full procedure note, which is enclosed. If I can be of further assistance, please feel free to contact me at Doctor phone number(s): , Work: . Sincerely, MD Calista Tucker MD 07/27/2019 11:09:07 AM This report has been signed electronically.
--- NOTE | 2019-07-27 11:09 | OP.COLON_ITS ---
Patient Name: Suzan Dunn Procedure Date: 07/27/2019 9:32 AM Date of : 1955 Age: 64 Procedure: Colonoscopy Indications: High risk colon cancer surveillance: Personal history of colonic polyps Providers: Calista Sanders MD Referring MD: Dedra Regan Md Medicines: Monitored Anesthesia Care Patient Profile: Last Colonoscopy: yesterday attempted but poor prep--8-10 years ago previous one. Complications: No immediate complications. Procedure: Pre-Anesthesia Assessment: - Prior to the procedure, a History and Physical was performed, and patient medications and allergies were reviewed. The patient's tolerance of previous anesthesia was also reviewed. The risks and benefits of the procedure and the sedation options and risks were discussed with the patient. All questions were answered, and informed consent was obtained. Prior Anticoagulants: The patient has taken no previous anticoagulant or antiplatelet agents. ASA Grade Assessment: II - A patient with mild systemic disease. After reviewing the risks and benefits, the patient was deemed in satisfactory condition to undergo the procedure. After I obtained informed consent, the scope was passed under direct vision. Throughout the procedure, the patient's blood pressure, pulse, and oxygen saturations were monitored continuously. The pediatric colonoscope was introduced through the anus and advanced to the cecum, identified by the appendiceal orifice, ileocecal valve and palpation. The colonoscopy was technically difficult and complex due to a tortuous colon. Successful completion of the procedure was aided by applying abdominal pressure. The patient tolerated the procedure well. The quality of the bowel preparation was good. The bowel preparation used was dulcolax/miralax split x 2 & clears x 2 days. Scope In: 9:51:30 AM Scope Withdrawal Time 0 hours 52 minutes 51 seconds Scope Out: 10:58:11 AM Total Procedure Duration Time 1 hour 6 minutes 41 seconds Findings: Hemorrhoids were found on perianal exam. Five semi-pedunculated polyps were found in the proximal transverse colon, mid transverse colon, hepatic flexure and proximal ascending colon. The polyps were 4 to 7 mm in size. These polyps were removed with a hot snare. Resection and retrieval were complete. A 5 mm polyp was found in the mid ascending colon. The polyp was sessile. The polyp was removed with a saline injection-lift technique using a hot snare. Resection and retrieval were complete. Two sessile polyps were found in the proximal transverse colon and mid transverse colon. The polyps were 3 to 5 mm in size. These polyps were removed with a cold biopsy forceps. Resection and retrieval were complete. Internal hemorrhoids were found. The hemorrhoids were Grade I (internal hemorrhoids that do not prolapse). The exam was otherwise without abnormality. Impression: - Hemorrhoids found on perianal exam. - Five 4 to 7 mm polyps in the proximal transverse colon, in the mid transverse colon, at the hepatic flexure and in the proximal ascending colon, removed with a hot snare. Resected and retrieved. - One 5 mm polyp in the mid ascending colon, removed using injection-lift and a hot snare. Resected and retrieved. - Two 3 to 5 mm polyps in the proximal transverse colon and in the mid transverse colon, removed with a cold biopsy forceps. Resected and retrieved. - Internal hemorrhoids. - The examination was otherwise normal. Recommendation: - Discharge patient to home. - Resume previous diet. - Continue present medications. - Await pathology results. - Repeat colonoscopy in 1 year for surveillance based on pathology results. Procedure Code(s): --- Professional --- 84507, PT, Colonoscopy, flexible; with removal of tumor(s), polyp(s), or other lesion(s) by snare technique 81506, Colonoscopy, flexible; with directed submucosal injection(s), any substance 15725, 59, Colonoscopy, flexible; with biopsy, single or multiple Diagnosis Code(s): --- Professional --- Z86.010, Personal history of colonic polyps K64.0, First degree hemorrhoids D12.2, Benign neoplasm of ascending colon D12.3, Benign neoplasm of transverse colon (hepatic flexure or splenic flexure) CPT copyright 2017 [employer]. All rights reserved. The codes documented in this report are preliminary and upon boiler room operator review may be revised to meet current compliance requirements. MD Calista Tucker MD 07/27/2019 11:09:07 AM This report has been signed electronically. Number of Addenda: 0 Note Initiated On: 07/27/2019 9:32 AM
[2019-07-27 11:10] VITALS: BP 129/75; BP 135/69; PULSE 70; RESP 16; O2SAT 100
[2019-07-27 11:15] VITALS: BP 129/75; BP 146/66; PULSE 58; RESP 16; O2SAT 100
[2019-07-27 11:20] VITALS: BP 129/75; BP 131/72; PULSE 55; RESP 16; TEMP 36.6; O2SAT 100
[2019-07-27] MEDS: Lactated Ringers 1,000 ML 100 ML IV (11:20)
[2019-07-27 12:16] VITALS: BP 129/75
== END 2019-07-27 12:16 | disposition home or self-care (01) ==
LOC: EN 08:57 → AC 08:58
PROVIDERS: PCP Family Medicine Sports Medicine; Referring Provider Family Medicine Sports Medicine; Visit Provider Surgery
PROC: 0DJD8ZZ Inspection of Lower Intestinal Tract, Via Natural or Artificial Opening Endoscopic (ICD-10-PCS; CPT 45378; principal; 2019-07-27 09:55)
DX: Z12.11 Encounter for screening for malignant neoplasm of colon (principal); D12.2 Benign neoplasm of ascending colon; D12.3 Benign neoplasm of transverse colon; Z53.8 Procedure and treatment not carried out for other reasons; K64.0 First degree hemorrhoids; K63.5 Polyp of colon; E78.00 Pure hypercholesterolemia, unspecified; Z88.2 Allergy status to sulfonamides; Z78.0 Asymptomatic menopausal state; Z86.010 Personal history of colon polyps; Z87.442 Personal history of urinary calculi; Z87.440 Personal history of urinary (tract) infections
CPT/HCPCS: 45378; 45380; 45381; 45385; 88305; J7120; A4216; J2405

== ENCOUNTER → 2019-08-16 | Outpatient (CLI) | payer SELFPAY ==
[2019-07-27 09:19] VITALS: BMI 26.9
== END | disposition home or self-care (01) ==
LOC: LABSPEC 09:59
PROVIDERS: PCP Family Medicine Sports Medicine; Visit Provider Obstetrics & Gynecology
DX: Z12.4 Encounter for screening for malignant neoplasm of cervix (principal)
CPT/HCPCS: 88175; G0145

== ENCOUNTER → 2020-07-03 | Outpatient (CLI) | payer SELFPAY | END | disposition home or self-care (01) | LOC: LABSPEC 15:15 | PROVIDERS: PCP Family Medicine Sports Medicine; Referring Provider Urology; Visit Provider Urology | DX: R30.0 Dysuria (principal) | CPT/HCPCS: 87086; 87088 ==

== ENCOUNTER → 2020-07-31 07:53 | Outpatient (CLI) | payer SELFPAY ==
--- NOTE | 2020-07-31 08:00 | BI_ITS ---
MAMMOGRAPHY - BILATERAL SCREENING REASON FOR EXAM: Female, 65 years old. Routine annual screening examination. PERTINENT HISTORY: Mother with breast cancer. TECHNIQUE: Digital bilateral breast darwin (3D mammographic acquisition) in the CC and MLO projections. 2-D mediolateral oblique (MLO) and craniocaudad (CC) views of both breasts were obtained. CAD: Full Field Digital Mammography with Computer Added Detection was performed. COMPARISON: Comparison is made with prior study dated 07/12/2019 and 05/13/2018. FINDINGS: Breast Composition: The breasts are heterogeneously dense, which may obscure small masses. There are no dominant masses or suspicious calcifications. Stable benign-appearing bilateral axillary lymph nodes. No other significant abnormalities are identified. There has been no significant change since the prior study. BI/SCRN MAMM (CAD)W/DARWIN BILAT IMPRESSION: Stable bilateral screening mammogram. Yearly follow-up mammogram recommended. (A) ASSESSMENT CATEGORY: BIRADS Category 2: Benign. A letter regarding these results will be sent to the patient by the facility within 30 days. Approximately 10% of breast cancers are not detected by mammography. A normal mammogram should not delay biopsy of a clinically suspicious abnormality. [id number] Electronically Signed: Hunter Benavides MD at 8:50 EST , Service support ,
== END ==
PROVIDERS: PCP Family Medicine Sports Medicine; Referring Provider Obstetrics & Gynecology; Visit Provider Obstetrics & Gynecology
DX: Z12.31 Encounter for screening mammogram for malignant neoplasm of breast (principal); Z80.3 Family history of malignant neoplasm of breast
CPT/HCPCS: 77063; 77067

== ENCOUNTER → 2020-09-14 10:50 | Outpatient (CLI) | payer SELFPAY ==
--- NOTE | 2020-09-14 11:21 | US_ITS ---
INDICATION: UTI EXAMINATION: Ultrasound US Kidney(s) complete (eg, kidneys and bladder) TECHNIQUE: Wayne scale and color doppler images were obtained of the kidneys. COMPARISON: 01/28/2018. FINDINGS: RIGHT KIDNEY: Normal in size measuring 10.3 x 4.9 x 5.6 cm. There is no hydronephrosis. Multiple small calculi are present, largest of which measures 3 mm. LEFT KIDNEY: Normal in size measuring 11.1 x 4.5 x 5.8 cm. There is no hydronephrosis. Multiple small calculi are present, largest of which measures 5 mm. URINARY BLADDER: Poor bladder emptying with postvoid residual of 365 mL. US/Kidney and Bladder IMPRESSION: Bilateral non-obstructing nephrolithiasis. Poor bladder emptying with postvoid residual of 365 mL. Per patient, this is due to a medication she is taking. Electronically Signed: Sascha Alfaro MD at 22:45 EDT Tel , Service support ,
== END ==
PROVIDERS: PCP Family Medicine Sports Medicine; Referring Provider Urology; Visit Provider Urology
DX: N39.0 Urinary tract infection, site not specified (principal)
CPT/HCPCS: 76770

== ENCOUNTER → 2021-01-23 09:51 | Outpatient (CLI) | payer SELFPAY ==
--- NOTE | 2021-01-23 09:59 | BD_ITS ---
STUDY: DUAL ENERGY X-RAY ABSORPTIOMETRY / DXA REASON FOR EXAM: Female, 65 years old. M85.9. The patient is postmenopausal. TECHNIQUE: Bone Mineral Density (BMD) measurements of lumbar spine and bilateral hips were obtained. COMPARISON: None. FINDINGS: Lumbar Spine (L1-L4): g/cm2 (0.789) / T-score (-2.3) / Z-score (-0.6) Findings are suggestive of osteopenia with a high fracture risk. Left Femur Total: g/cm2 (0.646) / T-score (-2.4) / Z-score (-1.2) Left Femoral Neck: g/cm2 (0.543) / T-score (-2.8) / Z-score (-1.3) Right Femur Total: g/cm2 (0.621) / T-score (-2.6) / Z-score (-1.4) Right Femoral Neck: g/cm2 (0.532) / T-score (-2.9) / Z-score (-1.4) BD/Dexa Bone Density Study IMPRESSION: The patient is considered osteoporotic as outlined below according to World Kenneth Organization (WHO) criteria with a high fracture risk. Reference Information: The T-score is the number of standard deviations above or below the standard which is normal for young adults at their peak bone mineral density. The World Health Organization (WHO) interprets the T-scores as follows: Above -1 Normal bone density Between -1 and -2.5 Osteopenia Equal to / or below -2.5 Osteoporosis As a practical clinical guideline, osteopenia may be graded as follows: Mild -1 through -1.5 Moderate -1.6 through -2.0 Severe -2.1 through -2.4 The Z-score is the number of standard deviations above or below age-matched controls. A Z-score of less than -1.5 would be considered abnormal. References: 1. NIH Osteoporosis and Related Bone Diseases www osteo.org 2. International Society for Clinical Densitometry www iscd.org 3. National Osteoporosis Foundation www nof.org Electronically Signed: Hunter Benavides MD at 14:24 EDT , Service support ,
== END ==
PROVIDERS: Referring Provider Obstetrics & Gynecology; Visit Provider Obstetrics & Gynecology
DX: M81.0 Age-related osteoporosis without current pathological fracture (principal); Z78.0 Asymptomatic menopausal state
CPT/HCPCS: 77080

== ENCOUNTER 2021-03-14 23:05 | Emergency (ER) | payer SELFPAY ==
--- NOTE | 2021-03-14 00:20 | RAD_ITS ---
STUDY: X-RAY CHEST REASON FOR EXAM: Female, 65 years old. cough TECHNIQUE: Single AP portable view of the chest. COMPARISON: None. FINDINGS: Ill-defined subpleural groundglass opacities are seen more prominent in the lung bases , may represent atypical pneumonia or viral pneumonia (COVID-19 ?). There is no demonstrated pleural abnormality. Normal size heart. Normal mediastinum and jenny. Normal visualized pulmonary arteries. Normal visualized aortic arch and descending thoracic aorta. Normal visualized thoracic spine. Normal visualized ribs, clavicles, and shoulders. There is no demonstrated abnormality of the visualized soft tissue structures of the upper abdomen. RAD/Chest 1 View (Portable) IMPRESSION: Normal x-ra Ill-defined subpleural groundglass opacities are seen more prominent in the lung bases , may represent atypical pneumonia or viral pneumonia (COVID-19 ?). y examination of the chest. Electronically Signed: Kayla Marks MD at 1:32 EDT Tel , Service support ,
[2021-03-14 23:06] VITALS: BP 98/60; PULSE 93; RESP 17; TEMP 36.9; O2SAT 96; BMI 24.0
[2021-03-15 00:24] LABS: Absolute Lymphocyte Count 0.56 X10^3/uL (0.83-4.51); Hematocrit 45.1 % (37-47); Hemoglobin 14.6 g/dL (12.0-15.0); Lymphocyte # 0.56 X10^3/ul (0.83-4.51); Lymphocyte % 11.3 % (19-41); Mean Corp Hgb Conc 32.4 g/dL (32-36); Mean Corpuscular Hgb 27.9 pg (27.0-32.0); Mean Corpuscular Volume 86.2 fL (81-99); Mean Platelet Vol. 10.8 fl (6.2-12.0); Monocyte# 0.34 X10^3/uL; Monocyte% 6.8 % (0-10); NRBC Flagged by Analyzer 0 % (0-5); Neutrophil # 4.04 X10^3/uL (2.7-7.7); Neutrophil % 81.3 % (47-70); POSITIVE DIFFERENTIAL YES; Platelet Count 183 K/mm3 (150-450); RBC Distribution Width CV 12.8 % (11.6-14.6); RBC Distribution Width SD 40.3 fl (35.1-43.9); Red Blood Count 5.23 M/mm3 (4.2-5.4)
[2021-03-15 00:36] LABS: Differential Indicated SCAN CRITERIA MET
[2021-03-15 00:39] LABS: ALB/GLOB Ratio 0.8 RATIO (0.9-2.4); AST(SGOT) 31 U/L (15-37); Alanine Aminotransfer ALT/SGPT 31 U/L (13-56); Albumin, Serum 3.3 g/dL (3.2-5.0); Alkaline Phosphatase 91 U/L (45-117); Anion Gap 5 (5-15); BUN 23 mg/dL (7-18); BUN/Creat Ratio 30.9 RATIO (10-20); Calcium,Total 8.6 mg/dL (8.5-10.1); Chloride 107 mmol/L (98-107); Creatinine, Serum 0.74 mg/dL (0.55-1.02); EST Glomerular Filtration Rate 83 mL/min (>60); Est Glom Filt Rate - Afr Amer 101 mL/min (>60); Estimated Creatinine Clearance 66.32 ml/min; Globulin 4.2 g/dL (2.2-4.2); Glucose 152 mg/dL (74-106); Potassium 3.7 mmol/L (3.5-5.1); Protein, Total 7.5 g/dL (6.4-8.2); Sodium Level 140 mmol/L (136-145)
[2021-03-15 01:04] VITALS: BP 119/59; PULSE 91; RESP 19; TEMP 36.9; O2SAT 98
[2021-03-15 01:06] VITALS: BP 119/59; PULSE 91; RESP 22; O2SAT 98
[2021-03-15 01:35] LABS: Differential Comment SCANNED
--- NOTE | 2021-03-15 03:04 | EDS_ITS ---
HPI History of Present Illness Chief Complaint: Shortness of Breath Informant: patient Onset/Context/Timing Onset: Days (12) Context: gradual Timing: Continuous Quality: Positive for Dyspnea on exertion Worsened by: Nothing Relieved by: Nothing Associated Symptoms cough, ear pain, fever and yellow sputum; Negative for rhinorrhea or sore throat Chest Pain: Positive for None Narrative Narrative: Patient presents with shortness of breath that has been getting worse over the last 12 days. Patient states she was exposed to COVID-19 2 weeks ago. Patient has not been vaccinated for COVID-19. Patient states she is coughing up some yellow sputum. Patient states a family member listened to her lungs and thought she may be developing Covid pneumonia. Patient states nothing makes her breathing worse and nothing makes it better. Patient states she has had a fever of 103 at home. Patient states she has been taking Tylenol and Motrin for this. Patient admits to some generalized weakness. [facility] Medical History Multiple sclerosis Home Medications cholecalciferol (vitamin D3) 1,000 unit PO DAILY 07/22/18 [History Last Taken 07/20/18] cranberry extract 400 mg PO DAILY 07/20/19 [History Last Taken Unknown] flaxseed oil 1,000 mg PO DAILY 07/20/19 [History Last Taken Unknown] mirabegron 50 mg PO DAILY 07/20/19 [History Last Taken Unknown] omega-3 fatty acids-fish oil 1 ea PO DAILY 07/20/19 [History Last Taken Unknown] Allergy/AdvReac Type Severity Reaction Status Date / Time Sulfa (Sulfonamide Allergy Hives Verified 03/14/21 23:08 Antibiotics) Surgical History History of delivery Social History Smoking Status: Never smoker ROS ROS ED Constitutional Constitutional ED: Reports fever(s); Denies chills Eyes Eyes: Denies blurry vision or change in vision ENT ENT ED: Denies rhinorrhea or sore throat Cardiovascular Cardiovascular: Denies chest pain or palpitations Respiratory/Chest Respiratory/Chest: Reports cough and dyspnea Gastrointestinal Gastrointestinal: Denies nausea or vomiting Genitourinary Genitourinary ED: Denies dysuria or hematuria Musculoskeletal Musculoskeletal: Denies back pain or neck pain Integumentary Reports rash; Denies abscess Neurologic Neurologic: Reports weakness; Denies headache(s) Allergic/Immunologic Allergic/Immunologic ED: Denies mouth swelling or urticaria EXAM Physical Exam Const Vital Signs: 03/14/21 23:06 03/15/21 00:22 03/15/21 01:04 Temperature 98.5 F 98.4 F Temperature Source Temporal Temporal Pulse Rate 93 91 Respiratory Rate 17 19 H Respiratory Effort Normal Blood Pressure 98/60 119/59 L Blood Pressure Mean 72 79 Pulse Ox 96 98 Oxygen Delivery Method Room Air Room Air 03/15/21 01:06 03/15/21 03:08 Temperature Temperature Source Pulse Rate 91 84 Respiratory Rate 22 H 22 H Respiratory Effort Blood Pressure 119/59 L 103/62 Blood Pressure Mean 79 75 Pulse Ox 98 97 Oxygen Delivery Method Room Air Positive well nourished and well developed General Appearance ED: well developed HEENT Reports moist mucous membranes Neck supple and no JVD Resp normal respiratory effort Auscultation: rales bilateral lower Cardio regular rate, regular rhythm and no murmurs GI normal to inspection, nondistended, normoactive bowel sounds, non-tender and non-distended Auscultation: normoactive bowel sounds Palpation: soft Extremity normal to inspection General Extremety ED: Negative for edema or tenderness General Extremity: Negative for edema Neuro oriented x3, CN's II-XII intact bilaterally and no sensory deficits noted Sensorium / Orientation: alert Motor Exam: strength 5/5 throughout Psych mental status grossly normal Skin no rashes or lesions noted MDM MDM MDM Narrative Medical decision making narrative: CBC and comprehensive metabolic profile were obtained and were essentially within normal limits. COVID-19 rapid antigen was obtained and was positive. Portable 1 view chest x-ray was obtained. On my interpretation, lung green shows some ill-defined groundglass opacities in the lung bases. These may represent atypical or viral pneumonia. There is normal cardiac silhouette. Bony thorax is normal. Radiologist also interpreted the x- ray and agrees. Patient was advised of her findings. Since her symptoms began 12 days ago she is not a candidate for monoclonal antibodies. Patient was instructed to continue Tylenol and ibuprofen as needed. Patient was instructed to drink plenty of fluids. Patient was instructed to follow-up with her primary care physician in 5 to 7 days. Patient and family understood and were agreeable with the plan. All questions were answered. Lab Data Attestation: I reviewed the patient's lab results. Labs: Laboratory Results - last 24 hr 03/15/21 03/15/21 00:05 00:05 WBC 5.0 RBC 5.23 Hgb 14.6 Hct 45.1 MCV 86.2 MCH 27.9 MCHC 32.4 RDW Std Deviation 40.3 RDW Coeff of Lorenzo 12.8 Plt Count 183 MPV 10.8 Immature Gran % (Auto) 0.600 Neut % (Auto) 81.3 H Lymph % (Auto) 11.3 L [place] % (Auto) 6.8 Eos % (Auto) 0.0 Baso % (Auto) 0.0 Absolute Neuts (auto) 4.0 Absolute Lymphs (auto) 0.56 L Nucleated RBC % 0 Differential Comment SCANNED Sodium 140 Potassium 3.7 Chloride 107 Carbon Dioxide 28.0 Anion Gap 5 BUN 23 H Creatinine 0.74 Estim Creat Clear Calc 66.32 Est GFR (MDRD) Af Amer 101 Est GFR (MDRD) Non-Af 83 BUN/Creatinine Ratio 30.9 H Glucose 152 H Calcium 8.6 Total Bilirubin 0.70 AST 31 ALT 31 Alkaline Phosphatase 91 Total Protein 7.5 Albumin 3.3 Globulin 4.2 Albumin/Globulin Ratio 0.8 L Radiography Chest X-Ray - ED: 1 View, Read by ED Physician, Read by Radiologist, Right Infiltrate and Left Infiltrate Diagnostic Testing: Radiology Impression Chest X-Ray 03/14/21 00:20 IMPRESSION: Normal x-ra Ill-defined subpleural groundglass opacities are seen more prominent in the lung bases , may represent atypical pneumonia or viral pneumonia (COVID-19 ?). y examination of the chest. Electronically Signed: Kayla Marks MD at 1:32 EDT Tel , Service support , Discharge Plan Triage Chief Complaint: Shortness of Breath ED Provider: Moy Garner Dx/Rx/DC Orders Clinical Impression: COVID-19 Instructions: Coronavirus Disease 2019 (COVID-19): Caring for Yourself or Others Prescriptions: No Action cholecalciferol (vitamin D3) 1,000 UNIT tablet 1,000 unit PO DAILY RF: 0 flaxseed oil 1,000 MG capsule 1,000 mg PO DAILY RF: 0 omega-3 fatty acids-fish oil 1 EACH capsule 1 ea PO DAILY RF: 0 cranberry extract 200 MG capsule 400 mg PO DAILY RF: 0 mirabegron 50 MG tablet extended release 24 hr 50 mg PO DAILY RF: 0 Referrals: ESMER CARDONA [Other] - 3-5 Days Disposition Disposition: Home, Self Care Discharge Date/Time: 03/15/21 03:12
[2021-03-15 03:08] VITALS: BP 103/62; PULSE 84; RESP 22; O2SAT 97
== END 2021-03-15 03:12 | disposition home or self-care (01) ==
PROVIDERS: Emergency Provider Emergency Medicine
DX: U07.1 COVID-19 (principal); G35 Multiple sclerosis; Z79.899 Other long term (current) drug therapy
CPT/HCPCS: 71045; 80053; 85025; 87426; 96360; 99285; J7030; A4216

== ENCOUNTER 2021-08-18 07:59 | Outpatient (CLI) | payer SELFPAY ==
--- NOTE | 2021-08-18 08:05 | BI_ITS ---
MAMMOGRAPHY - BILATERAL SCREENING REASON FOR EXAM: Female, 66 years old. Routine annual screening examination. PERTINENT HISTORY: Mother with breast cancer. TECHNIQUE: Digital bilateral breast darwin (3D mammographic acquisition) in the CC and MLO projections. 2-D mediolateral oblique (MLO) and craniocaudad (CC) views of both breasts were obtained. CAD: Full Field Digital Mammography with Computer Added Detection was performed. COMPARISON: Comparison is made with prior study of 07/31/2020 and 07/12/2019. FINDINGS: Breast Composition: There are scattered areas of fibroglandular density. There are no dominant masses or suspicious calcifications. No other significant abnormalities are identified. There has been no significant change since the prior study. BI/SCRN MAMM (CAD)W/DARWIN BILAT IMPRESSION: Stable bilateral screening mammogram. Yearly follow-up mammogram recommended. (A) ASSESSMENT CATEGORY: BIRADS Category 1: Negative. A letter regarding these results will be sent to the patient by the facility within 30 days. Approximately 10% of breast cancers are not detected by mammography. A normal mammogram should not delay biopsy of a clinically suspicious abnormality. [id number] Electronically Signed: Hunter Benavides MD at 8:51 EST ,
== END 2021-08-18 23:59 | disposition home or self-care (01) ==
LOC: OPBI 08:01
PROVIDERS: Referring Provider Obstetrics & Gynecology; Visit Provider Obstetrics & Gynecology
DX: Z12.31 Encounter for screening mammogram for malignant neoplasm of breast (principal); Z80.3 Family history of malignant neoplasm of breast
CPT/HCPCS: 77063; 77067

== ENCOUNTER 2022-01-21 07:02 | Day surgery (SDC) | payer MEDICARE, SELFPAY ==
[2022-01-21 07:23] VITALS: BP 122/62; PULSE 79; RESP 16; TEMP 36.4; O2SAT 97; BMI 28.0
--- NOTE | 2022-01-21 07:24 | HP.PCM_ITS ---
HPI - General HPI Narrative BARBARA LOPEZ, is a 66 F who presents for screening colonoscopy due to history of polyps.? Patient had a colonoscopy 07/27/2019 and at that time had multiple colon polyps most are hyperplastic did have a tubular adenoma as well as a serrated adenoma.? Patient did have to redo the prep and come back the following day.? Patient currently states she has bowel movements daily she been taking stool softeners and prunes.? Patient denies any blood.? Patient denies any chronic abdominal pain/nausea/vomiting/reflux.? No family history of colon cancer. PFSH Medical History (Updated 01/19/22 @ 13:40 by Cathy Laughlin) Bladder disease High cholesterol History of stress test Multiple sclerosis Non-smoker Post-menopausal Home Medications cholecalciferol (vitamin D3) 25 mcg (1,000 unit) tablet 1,000 unit PO DAILY supplement 07/22/18 [History Last Taken 07/20/18] cranberry extract 200 mg capsule 400 mg PO DAILY 07/20/19 [History Last Taken Unknown] mirabegron 50 mg tablet,extended release 24 hr 50 mg PO QHS 07/20/19 [History Last Taken Unknown] rosuvastatin 5 mg tablet (Crestor) 5 mg PO DAILY 01/19/22 [History Last Taken Unknown] Allergy/AdvReac Type Severity Reaction Status Date / Time Sulfa (Sulfonamide Allergy Hives Verified 01/21/22 07:23 Antibiotics) Surgical History (Updated 01/19/22 @ 13:40 by Cathy Laughlin) History of delivery History of reversal of tubal ligation History of tonsillectomy and adenoidectomy Hx of colonoscopy Social History Smoking Status: Never smoker Past Medical/Surgical History Planned Operation Planned Operative Procedure/s: CSCOPE S.O.S: No Previous Hospitalizations/Surgeries HX Hospitalizations: No HX of Surgeries: csection x5 tubal reversal tonsillectomy foot surgery tubal ligation cscope Any Problems With Anesthesia: No You/Your Family Experience Fever (Hyperthermia) With Anes: No Cholinesterase deficiency: No Cardiovascular Hx Chest Pain within Last 2 months: No Hx of Irregular Heartbeat and/or Afib: No Hx Heart Attack: No Hx Congestive Heart Failure: No Hx Rheumatic Fever: No Hx Hypertension: No Hx Internal Defibrillator: No Hx Pacemaker: No Hx Cardiac Catheterization: No Hx Cardiac Surgery/Stents/Etc.: No Hx Stress Test: Yes (2019) Hx Pain in Legs when Walking/Leg Cramps: No Respiratory Chronic Cough: No HX of Shortness of Breath: No Hoarseness: No Hx Chronic Obstructive Pulmonary Disease (COPD): No Hx Asthma: No Hx Emphysema: No Hx Sleep Apnea: No Hx Respiratory Tract Infection/Cold (presently): No Do You Snore Loudly (louder than talking or can be heard): No Do You Often Feel Tired/ Fatigued/ Sleepy Dring Daytime?: No Has Anyone Observed You Stop Breathing During Sleep?: No Result (for STOP score): Negative Hx Smoking: No Smoking Status: Never smoker Gastrointestinal Hx Gastroesophageal Reflux: No Hx Gastrointestinal Disorders: No Hx Gastrointestinal Bleed: No Hx Ulcer: No Hx Hiatal Hernia: No Difficulty Chewing/Swallowing: No Special diet followed at home: No Hx Unplanned Weight Loss of 20#: No HX Unplanned Weight Gain of 20#: No Neurological Hx Seizures: No HX Syncope/Blackout Spells/Unconsciousness: No Hx Transient Ischemic Attacks (TIA): No Hx Multiple Sclerosis: Yes (28 yrs ago) Hx Parkinson's Disease: No Hx Head/Neck Injury: No Hx Headaches: No Hx Back Injury/Pain: No Recent Onset of Speech Difficulty: No Restless Legs: No Does patient have nerve stimulator: No Blood Disorder Hx Leukemia: No Bleeding Tendencies: No Hx Deep Vein Thrombosis: No Hx High Cholesterol: Yes (no meds currently) Blood Transmitted Disease: No Hx Hepatitis: No Hx Cirrhosis: No Hx Anemia: No Hx Blood Disorders: No Reproduction : No Is Patient Lactating: No Hx Hysterectomy: No Hx Tubal Ligation: Yes Are You Post Menopause: Yes Genitourinary Hx Renal Disease: Yes (kidney stone/uti being treated with antibiotic) Hx Dialysis: No Musculoskeletal Hx Arthritis: No Hx Rheumatoid Arthritis: No Hx Gout: No Recent Onset of an Orthopedic Problem: No Endocrine Hx Diabetes: No Thyroid Disease: No Hx Steroid Therapy: No Psycho/Social Hx Substance Use: No Hx Alcohol Use: No Hx Anxiety: No Hx Depression: No Mental Illness: No Hx Dementia: No Miscellaneous Hx Cancer: No Recent Exposure to Contagious Disease: No Hx of C-Diff: No Any Loose Teeth: No Allergies Sulfa (Sulfonamide Antibiotics) Allergy (Verified 01/21/22 07:23) Hives Paternal: Heart Disease Discharge Is Pt Admitted From a Skilled Nursing, or a Custodial: No After D/C, Where Do you Plan to Go: Return Home From the PAT History Number of Risk Factors: 2 Physical Exam Const alert, oriented x3 and no apparent distress HEENT normocephalic and head/scalp atraumatic Resp normal respiratory effort Cardio regular rate GI soft to palpation and non-tender; Negative for non-distended Palpation: Negative for guarding Extremity no clubbing, cyanosis or edema Neuro CN's II-XII intact bilaterally Psych mental status grossly normal Assessment & Plan Assessment/Plan (1) Hx of adenomatous colonic polyps: Surgery Risks - Colonoscopy Risks Include but are not Limited To: Risks include but are not limited to: Bleeding, perforation requiring further surgery, inability to complete colonoscopy requiring barium enema.
[2022-01-21] MEDS: Lactated Ringers 1,000 ML 15 ML IV (07:27)
--- NOTE | 2022-01-21 08:15 | COLBX_PTH ---
PATIENT: BARBARA LOPEZ LOC: EN U#:[id number] AGE/SX: 66/F ROOM: RE01/21/[address]: Dr. Calista Sanders MD : 1955 BED: DIS: 01/21/2022 SPEC #: [id number] RECD: 01/21/22 10:54 STATUS: ELANA CLAIRE #: [id number] CINTHYA: 01/21/22 08:[address]: Calista Sanders DEPT: SURGICAL PATHOLOGY RECD BY: Diana Huang Tissues: A - Cecum, NOS B - Cecum, NOS C - Rectum, NOS Procedures: Surgery Specimen Level IV HEADER OPERATION: Colonoscopy (MAC) PRE-OP DIAGNOSIS: History of adenomatous colonic polyps TISSUE SUBMITTED: A ? Cecum polyp #1, B ? Cecum polyp #2, C ? Rectum polyp MICROSCOPIC DIAGNOSIS A. Cecum polyp #1, biopsy: Fragments of tubular adenoma. B. Cecum polyp #2, biopsy: Hyperplastic polyp. C. Rectum polyp, biopsy: Hyperplastic polyp. Fragments of fecal material. TEZ:lindsey 01/22/2022 MICROSCOPIC DESCRIPTION Slides are reviewed. GROSS DESCRIPTION A - Received in fixative is one container labeled with the patient's name and designated cecum polyp #1. The specimen consists of one irregular fragment of light morris soft tissue that measures 0.5 x 0.5 x 0.2 cm. Two minute fragments of morris soft tissue are also noted, each measuring 0.1 cm in greatest dimension. The specimen is totally submitted in one cassette. B - Received in fixative is one container labeled with the patient's name and designated cecum polyp #2. The specimen consists of one irregular fragment of light morris soft tissue that measures 1 x 0.5 x 0.1 cm. The specimen is totally submitted in one cassette. C - Received in fixative is one container labeled with the patient's name and designated rectum polyp. The specimen consists of multiple irregular fragments of light morris soft tissue that in aggregate measure 0.5 x 0.5 x 0.1 cm. The specimen is totally submitted in one cassette. / TEZ:lindsey 01/21/2022 TC:1 CPT: 42105 x3
[2022-01-21] MEDS: 0.9% Saline Lock 10 ML Syringe IV (08:42)
[2022-01-21 09:00] VITALS: BP 122/62; BP 127/63; PULSE 72; RESP 16; TEMP 36.3; O2SAT 100
--- NOTE | 2022-01-21 09:03 | OP.COLON_ITS ---
Patient Name: Suzan Dunn Procedure Date: 01/21/2022 8:07 AM Date of : 1955 Age: 66 Procedure: Colonoscopy Indications: High risk colon cancer surveillance: Personal history of sessile serrated colon polyp (less than 10 mm in size) with no dysplasia Providers: Calista Sanders MD Medicines: Monitored Anesthesia Care Patient Profile: This is a 66 year old female. Last Colonoscopy: 2 years. Complications: No immediate complications. Procedure: Pre-Anesthesia Assessment: - Prior to the procedure, a History and Physical was performed, and patient medications and allergies were reviewed. The patient's tolerance of previous anesthesia was also reviewed. The risks and benefits of the procedure and the sedation options and risks were discussed with the patient. All questions were answered, and informed consent was obtained. Prior Anticoagulants: The patient has taken no previous anticoagulant or antiplatelet agents. ASA Grade Assessment: Per anesthesia. After reviewing the risks and benefits, the patient was deemed in satisfactory condition to undergo the procedure. After I obtained informed consent, the scope was passed under direct vision. Throughout the procedure, the patient's blood pressure, pulse, and oxygen saturations were monitored continuously. The Colonoscope was introduced through the anus and advanced to the cecum, identified by the appendiceal orifice, ileocecal valve and palpation. The colonoscopy was somewhat difficult due to a tortuous colon. Successful completion of the procedure was aided by applying abdominal pressure. The patient tolerated the procedure well. The quality of the bowel preparation was good. Scope In: 8:18:42 AM Scope Withdrawal Time 0 hours 22 minutes 35 seconds Scope Out: 8:55:24 AM Total Procedure Duration Time 0 hours 36 minutes 42 seconds Findings: The perianal and digital rectal examinations were normal. A 8 mm polyp was found in the cecum. The polyp was carpet-like. The polyp was removed with a saline injection-lift technique using a hot snare. Resection and retrieval were complete. Two sessile polyps were found in the rectum and cecum. The polyps were 3 to 5 mm in size. These polyps were removed with a hot snare. Resection and retrieval were complete. Impression: - One 8 mm polyp in the cecum, removed using injection-lift and a hot snare. Resected and retrieved. - Two 3 to 5 mm polyps in the rectum and in the cecum, removed with a hot snare. Resected and retrieved. Recommendation: - Await pathology results. - Repeat colonoscopy 2-3 years for surveillance based on pathology results. - Continue present medications. Procedure Code(s): --- Professional --- 22272, PT, Colonoscopy, flexible; with removal of tumor(s), polyp(s), or other lesion(s) by snare technique 73250, Colonoscopy, flexible; with directed submucosal injection(s), any substance Diagnosis Code(s): --- Professional --- Z86.010, Personal history of colonic polyps D12.0, Benign neoplasm of cecum K62.1, Rectal polyp CPT copyright 2017 [employer]. All rights reserved. The codes documented in this report are preliminary and upon ict teacher review may be revised to meet current compliance requirements. MD Calista Tucker MD 01/21/2022 9:03:52 AM This report has been signed electronically. Number of Addenda: 0 Note Initiated On: 01/21/2022 8:07 AM
--- NOTE | 2022-01-21 09:04 | OP.CCLET_ITS ---
01/21/2022 Lady Cabral Re : Colonoscopy procedure for Suzan Cabral This procedure was performed on Friday, January 21, 2022. My impressions and recommendations are as follows: Impressions : - One 8 mm polyp in the cecum, removed using injection-lift and a hot snare. Resected and retrieved. - Two 3 to 5 mm polyps in the rectum and in the cecum, removed with a hot snare. Resected and retrieved. Recommendations : - Await pathology results. - Repeat colonoscopy 2-3 years for surveillance based on pathology results. - Continue present medications. My findings are described in the full procedure note, which is enclosed. If I can be of further assistance, please feel free to contact me at Doctor phone number(s): , Work: . Sincerely, MD Calista Tucker MD 01/21/2022 9:03:52 AM This report has been signed electronically.
[2022-01-21 09:05] VITALS: BP 119/64; BP 122/62; PULSE 66; RESP 18; O2SAT 100
[2022-01-21 09:10] VITALS: BP 122/62; BP 124/57; PULSE 64; RESP 18; O2SAT 100
[2022-01-21 09:14] VITALS: BP 122/62; BP 137/75; PULSE 72; RESP 18; O2SAT 100
[2022-01-21 09:17] VITALS: BP 122/62; BP 132/76; PULSE 62; RESP 18; TEMP 36.3; O2SAT 100
== END 2022-01-21 09:39 | disposition home or self-care (01) ==
LOC: EN 07:03 → AC 07:05
PROVIDERS: Referring Provider Surgery; Visit Provider Surgery
PROC: 0DJD8ZZ Inspection of Lower Intestinal Tract, Via Natural or Artificial Opening Endoscopic (ICD-10-PCS; CPT 45378; principal; 2022-01-21 08:10)
DX: Z12.11 Encounter for screening for malignant neoplasm of colon (principal); G35 Multiple sclerosis; D12.0 Benign neoplasm of cecum; K62.1 Rectal polyp; E78.00 Pure hypercholesterolemia, unspecified; Z86.010 Personal history of colon polyps; Z78.0 Asymptomatic menopausal state; Z79.899 Other long term (current) drug therapy; Q43.8 Other specified congenital malformations of intestine
CPT/HCPCS: 45385; 45381; 88305; J7120; A4216; J2405

== ENCOUNTER → 2022-09-23 | Outpatient (CLI) | payer MEDICARE, SELFPAY ==
[2022-09-29 11:18] LABS: HPV APTIMA, High Risk Negative (Negative)
== END | disposition home or self-care (01) ==
LOC: WOBLAB 11:42
PROVIDERS: Visit Provider Student in an Organized Health Care Education/Training Program
DX: N39.0 Urinary tract infection, site not specified (principal); Z12.4 Encounter for screening for malignant neoplasm of cervix
CPT/HCPCS: 87077; 87086; 87088; 87186; 87624; 88175; G0145

== ENCOUNTER → 2022-10-02 | Outpatient (CLI) | payer MEDICARE, SELFPAY ==
--- NOTE | 2022-10-02 09:05 | US_ITS ---
STUDY: ULTRASOUND BREAST - LEFT REASON FOR EXAM: Female, 67 years old. Left axillary pain. TECHNIQUE: Axial and longitudinal images of the LEFT breast were performed with a high resolution ultrasound transducer. # OF IMAGES: 26 COMPARISON: Comparison is made with prior mammogram done earlier today. FINDINGS: LEFT Breast: The left axillary region was examined with ultrasound. There is a 6 mm x 10 mm x 6 mm benign-appearing lymph node. US/Breast Limited Unilateral IMPRESSION: 6 mm x 10 mm x 6 mm benign-appearing lymph node in the left axilla. ASSESSMENT CATEGORY: BIR ADS Category 2: Benign. A letter regarding these results will be sent to the patient by the facility within 30 days. Electronically Signed: Hunter Benavides MD at 14:46 EDT ,
--- NOTE | 2022-10-02 09:05 | BI_ITS ---
MAMMOGRAPHY - BILATERAL DIAGNOSTIC REASON FOR EXAM: Female, 67 years old. Occasional bilateral axillary tenderness worse on the left side. PERTINENT HISTORY: Mother with breast cancer. TECHNIQUE: Digital bilateral breast babs (3D mammographic acquisition) in the CC and MLO projections. 2-D mediolateral oblique (MLO) and craniocaudad (CC) views of both breasts were obtained. CAD: Full Field Digital Mammography with Computer Added Detection was performed. COMPARISON: Comparison is made with prior examination of August 18, 2021 and July 31, 2020. FINDINGS: Breast Composition: There are scattered areas of fibroglandular density. There are no dominant masses or suspicious calcifications. Stable small benign appearing bilateral axillary lymph nodes. No other significant abnormalities are identified. There has been no significant change since the prior study. BI/DIAG MAMM W/CAD, BILAT IMPRESSION: Stable bilateral diagnostic mammogram. With the patient''s history of left axillary tenderness, targeted ultrasound is recommended. ASSESSMENT CATEGORY: BIRADS Category 0: Incomplete. Need additional imaging evaluation. A letter regarding these results will be sent to the patient by the facility within 30 days. Approximately 10% of breast cancers are not detected by mammography. A normal mammogram should not delay biopsy of a clinically suspicious abnormality. Electronically Signed: Hunter Benavides MD at 10:03 EDT ,
== END | disposition home or self-care (01) ==
PROVIDERS: Referring Provider Student in an Organized Health Care Education/Training Program; Visit Provider Student in an Organized Health Care Education/Training Program
DX: N64.4 Mastodynia (principal)
CPT/HCPCS: 76642; 77062; 77066; G0279

== ENCOUNTER → 2023-02-10 | Outpatient (CLI) | payer MEDICARE, SELFPAY ==
--- NOTE | 2023-02-10 07:26 | CT_ITS ---
STUDY: CT ABDOMEN AND PELVIS WITHOUT CONTRAST REASON FOR EXAM: Female, 67 years old. STONES,UTI RADIATION DOSAGE (If Supplied By Facility): CTDIvol = ( 10.36 ) mGy, DLP = ( 504.51 ) mGycm TECHNIQUE: Transaxial images were obtained from the dome of the diaphragm to the symphysis pubis without oral contrast, and without intravenous contrast. Sagittal and coronal images were reconstructed. Individualized dose optimization techniques were used for this CT. COMPARISON: Comparison is made with prior study February 05, 2018. FINDINGS: Mild increased markings in the posterior medial segment of the right lower lobe suggestive of scarring. The visualized portions of the heart are within normal limits. Normal liver. There are multiple gallstones. Normal spleen. Normal pancreas. Normal bilateral adrenal glands. Normal right kidney. Normal left kidney. No intrarenal calculi are seen at this time. Normal visualized stomach. Normal small intestine. Normal colon. The appendix is visualized and appears normal. There is scattered atherosclerotic calcification of the abdominal aorta and its major visceral branches, without a demonstrated aneurysm. Normal inferior vena cava. Normal retroperitoneum. Normal urinary bladder. There is a small umbilical hernia containing fat. Normal osseous structures. CT/Abdomen/Pelvis without Cont IMPRESSION: Gallstones. Electronically Signed: Hunter Benavides MD at 15:11 EDT ,
== END | disposition home or self-care (01) ==
PROVIDERS: Referring Provider Urology; Visit Provider Urology
DX: N39.0 Urinary tract infection, site not specified (principal); N20.0 Calculus of kidney
CPT/HCPCS: 74176